=== PATIENT | female | born 1965 | race Caucasian/White ===

== ENCOUNTER 2020-06-24 15:00 | Inpatient (IN) | payer OTHER ==
[~2020-06-24] VITALS: Ht 160 cm; Wt 51.7 kg
[2020-06-24] MEDS ORDERED: NACL 0.9% 2,000 ML IV ONE (15:09)
[2020-06-24 15:15] VITALS: BP 103/41
--- NOTE | 2020-06-24 15:15 | NUR ---
pt biba from [facility] room for aloc. glucometer reads high gcs 11. pt opens eyes to voice. pupils perrl. pt appears withdrawn and fatigued. moves extremeties to light pain. mumbling, speech incomprehensible. 2 ivs established and bolus started. aroldo thomas. bp stable. airway intact. pmh-unknown
--- NOTE | 2020-06-24 15:24 | NUR ---
Pt to CT via edie
--- NOTE | 2020-06-24 15:25 | NUR ---
assisted pt to ct, pt on vehicle monitor technician during transport
--- NOTE | 2020-06-24 15:38 | NUR ---
Pt returned from CT via [facility]
[2020-06-24 15:44] LABS: MEAN CORPUSCULAR HEMOGLOBIN 31 pg (27-31); MEAN CORPUSCULAR HGB CONC 28 g/dL (33-37)
--- NOTE | 2020-06-24 15:54 | NUR ---
# 14 FR Urinary catheter inserted utilizing sterile technique. Immediate return of light yellow urine noted. Urine sample collected and sent to lab. Pt tolerated procedure well.
--- NOTE | 2020-06-24 15:55 | NUR ---
pt opens eyes spontaneously. pt moves arms to pain. pt not speaking in full complete sentences, moans instead.
[2020-06-24 16:08] LABS: ALBUMIN 3.1 g/dL (3.4-5.0); ANION GAP 28.8 (8-16); CARBON DIOXIDE 19.7 mmol/L (21-32); POTASSIUM 4.5 mmol/L (3.5-5.1); TOTAL BILIRUBIN 0.4 mg/dL (0.0-1.0)
[2020-06-24 16:10] LABS: HEMATOCRIT 52.1 % (36-48); HEMOGLOBIN 14.7 g/dL (12.0-16.0); MEAN CORPUSCULAR VOLUME 111.5 fL (80-94); PLATELET COUNT (AUTO) 315 K/uL (140-450); RED BLOOD CELL COUNT(AUTO) 4.68 MIL/uL (4.20-5.40); RED CELL DISTRIBUTION WIDTH 15.2 % (11.6-13.7); WHITE BLOOD COUNT (AUTO) 14.8 K/uL (4.8-10.8)
[2020-06-24 16:12] LABS: LYMPHOCYTES % (MANUAL) 6 % (20-46); METAMYELOCYTES % 1 % (0-0); PROTHROMBIN TIME 10.6 secs (10.8-13.4)
[2020-06-24 16:21] LABS: APPEARANCE,URINE CLEAR (CLEAR); BILIRUBIN,URINE NEGATIVE (NEGATIVE); BLOOD, URINE NEGATIVE (NEGATIVE); COLOR,URINE YELLOW (YELLOW); LEUKOCYTE ESTERASE ,URINE NEGATIVE (NEGATIVE); NITRITE, URINE NEGATIVE (NEGATIVE); PH,URINE 5.5 (5.0-9.0); UGLUCOSE 3+ (NEGATIVE)
--- NOTE | 2020-06-24 16:28 | NUR ---
Lactic acid 3.4, glucose 1580, BUN 63-- critical lab value received from lab. Dr Pruitt made aware
[2020-06-24] MEDS ORDERED: PIPERACILLIN/TAZOBACTAM 3.375 GM in DEXTROSE 5% 50 ML IV ONE (16:30)
[2020-06-24] MEDS ORDERED: PIPERACILLIN/TAZOBACTAM 3.375 GM VIAL IV ONE (16:48)
[2020-06-24] MEDS ORDERED: NACL 0.9% 1,000 ML IV ONE (16:50)
[2020-06-24] MEDS ORDERED: INSULIN REGULAR, HUMAN 100 UNIT/ML VIAL IVP ONE (16:50)
[2020-06-24] MEDS ORDERED: INSULIN REGULAR, HUMAN 100 UNIT in NACL 0.9% 100 ML IV ONE ×2 (16:50)
[2020-06-24 16:56] LABS: BARBITURATE, URINE NEGATIVE ng/ml (NEG <=200); BENZODIAZEPINE, URINE NEGATIVE ng/mL (NEG <=200); CANNABINOID, URINE NEGATIVE ng/mL (NEG <=50); COCAINE, URINE NEGATIVE ng/mL (NEG <=300); OPIATE, URINE NEGATIVE ng/mL (NEG <=2000); PHENCYCLIDINE SCREEN,URINE NEGATIVE ng/mL (NEG <=25)
--- NOTE | 2020-06-24 17:02 | NUR ---
accu check continues to be too high to read by glucometer
[2020-06-24] MEDS ORDERED: POTASSIUM CHL 20 MEQ/NACL 0.9% 1,000 ML IV ONE (17:05)
--- NOTE | 2020-06-24 17:23 | NUR ---
16 georgian john catheter placed, 100cc clear, yellow urine removed from pt
--- NOTE | 2020-06-24 17:26 | NUR ---
nadr, flacc 0
--- NOTE | 2020-06-24 17:27 | NUR ---
pt able to nod to yes or no questions. cant understand pt speaking, moaning. pupils open sponanteously. pt moves arms and legs spontaneously.
[2020-06-24] MEDS ORDERED: DEXTROSE 50% 50 ML SYR IVP PRN (17:50)
--- NOTE | 2020-06-24 18:03 | NUR ---
pt vomiting, dr borrero made aware
[2020-06-24] MEDS ORDERED: ONDANSETRON 4 MG/2 ML VIAL ONE (18:04)
[2020-06-24] MEDS ORDERED: ONDANSETRON 4 MG/2 ML VIAL IVP ONE (18:15)
[2020-06-24] MEDS: INSULIN REGULAR, HUMAN 100 UNIT in NACL 0.9% 100 ML IV SCH ×2 (18:25)
[2020-06-24] MEDS: BLOOD GLUCOSE MONITORING 1 DEV DEV FS SCH ×7 (18:26→23:50)
--- NOTE | 2020-06-24 18:50 | NUR ---
PT ARRIVED FROM ER IN [facility], REPORT RECEIVED FROM NIVIA RN, PT DROWSY, AROUSES TO VOICE, OX2, SELF AND LOCATION, SPEECH SLURRED/MUMBLING, SKIN WARM DRY COLOR WNL, PT PLACED ON ROLLING UP MACHINE OPERATOR, VITALS DOCUMENTED, PT WITH MONTGOMERY CATH, PIV TO R EJ 18G, R HAND 22G, LEFT AC 22G, PT ON INSULIN DRIP AT 5U/HR, NS WITH 20 KCL AT 250ML/HR, ALL SAFETY MEASURES IN PLACE, POC REVIEWED, MRSA SWAB DONE AND SENT TO LAB. WILL CONTINUE TO ADELINE
--- NOTE | 2020-06-24 18:52 | NUR ---
Patient will be admitted to care of Dr Barajas. Admited to ICU. Will go to room 6. Belongings list completed. Report to KAYLA Boyce.
[2020-06-24 18:55] LABS: ANION GAP 25.7 (8-16); CARBON DIOXIDE 17.3 mmol/L (21-32); CREATININE 2.7 mg/dL (0.6-1.3)
--- NOTE | 2020-06-24 19:20 | NUR ---
BEDSIDE REPORT GIVEN TO YANET GARZA.
[2020-06-24 19:23] LABS: FREE T4 (FREE THYROXINE) 1.02 ng/dL (0.76-1.46); THYROID STIMULATING HORMONE 0.28 uIU/mL (0.34-3.74)
--- NOTE | 2020-06-24 19:40 | NUR ---
REPORT RECEIVED FROM DAY SHIFT RN. PT IS DROWSY AND UNABLE TO PROVIDE ALL HISTORY WHEN ASKED. SPEECH IS MUMBLED. PT HAS ACCESSES ON THE LEFT AC 22G , 22G RIGHT HAND, 18G TO RIGHT EJ, ASYMPTOMATIC, PATENT AND INTACT. INSULIN DRIP INFUSING @ 5U/HR, 250 MLS NS WITH 20 MEQ KCL. RESPIRATION EVEN AND UNLABORED. SYMMETRICAL CHEST EXPANSION, SKIN WARM AND DRY. ORAL MUCOSA PINK AND MOIST. SAFETY MEASURES IN PLACE, SIDE RAILS UP AND BED IN LOWEST POSITION. WILL CONTINUE TO MONITOR.
[2020-06-24 19:48] LABS: ANION GAP 23.3 (8-16); CARBON DIOXIDE 20.6 mmol/L (21-32); CREATININE 2.8 mg/dL (0.6-1.3); POTASSIUM 3.9 mmol/L (3.5-5.1)
--- NOTE | 2020-06-24 19:57 | NUR ---
CALLED PT MOTHER NEDRA BERG @ [phone] BUT NUMBER IS NOT IN SERVICE.
[2020-06-24 19:59] LABS: MAGNESIUM 2.4 mg/dL (1.8-2.4)
[2020-06-24 20:00] VITALS: BP 93/56
[2020-06-24] MEDS ORDERED: NACL 0.9% 1,000 ML IV SCH (21:30)
--- NOTE | 2020-06-24 21:45 | NUR ---
SPOKE TO DR. HAIDER ABOUT PT'S BLOOD SUGAR >1000. MD ORDERED TO INCREASE INSULIN DRIP TO 7U/HR. MD ALSO ORDERED FOR NS @ 150MLS/HR X2 LITERS. WILL CONTINUE TO MONITOR.
[2020-06-24 22:00] VITALS: BP 123/56
--- NOTE | 2020-06-24 23:30 | NUR ---
LAB CALLED @ 8513 FOR A CRITICAL BS RESULT OF 959. PAGED DR. HAIDER ABOUT LATEST BLOOD SUGAR RESULT. SPOKE TO MD AND STATED TO MAINTAIN CURRENT INSULIN DRIP RATE OF 7U/HR. NS STILL INFUSING @ 150MLS/HR. WILL CONTINUE TO MONITOR.
[2020-06-25] VITALS (10 sets, daily range): BP systolic 100–155; BP diastolic 25–94
[2020-06-25 00:50] LABS: MAGNESIUM 2.5 mg/dL (1.8-2.4); PHOSPHORUS 3.4 mg/dL (2.5-4.9)
[2020-06-25] MEDS ORDERED: ONDANSETRON 4 MG/2 ML VIAL IVP PRN ×2 (00:50→16:15)
[2020-06-25] MEDS: BLOOD GLUCOSE MONITORING 1 DEV DEV FS SCH ×18 (00:50→20:35)
[2020-06-25 00:51] LABS: CARBON DIOXIDE 27.3 mmol/L (21-32); CREATININE 2.5 mg/dL (0.6-1.3); POTASSIUM 3.3 mmol/L (3.5-5.1)
--- NOTE | 2020-06-25 02:45 | NUR ---
CALLED DR. HAIDER ABOUT PT'S SODIUM LEVEL AT 158. MD ORDERED TO DC NS 0.9% AND CHANGE TO 0.45% NS @ 100 MLS/HR. WILL CONTINUE TO MONITOR PT.
--- NOTE | 2020-06-25 04:00 | NUR ---
MORNING ROUTINE PROVIDED. NO DISTRESS OBSERVED. DENIES PAIN. WILL CONTINUE TO MONITOR.
[2020-06-25 04:43] LABS: ANION GAP 15.2 (8-16); CARBON DIOXIDE 25.3 mmol/L (21-32); CREATININE 2.1 mg/dL (0.6-1.3); POTASSIUM 3.5 mmol/L (3.5-5.1)
[2020-06-25] MEDS: NACL 0.45% 1,000 ML IV SCH ×4 (05:00→22:38)
--- NOTE | 2020-06-25 07:15 | NUR ---
RECEIVED BEDSIDE REPORT FROM SUPERINTENDENT [place] NURSE YANET RN, PT ON ROOM AIR, NO SOB NOTED, AAOX2, IV TO L AC 22G PATENT INTACT SL, R EJ 18G PATENT INTACT, INFUSING INSULIN DRIP @ 4 UNIT/HR, INFUSING WELL AND RH 22 G IV PATENT INTACT, INFUSING 1/2 NS@ 100ML/HR, INFUSING WELL, MONTGOMERY CATH IN PLACE, DRAINING URINE TO GRAVITY. INITIAL ASSESSMENT DONE, ALL SAFETY PRECAUTION MET, CALL LIGHT WITHIN REACH, WILL CONTINUE TO MONITOR.
[2020-06-25 07:48] LABS: MAGNESIUM 2.5 mg/dL (1.8-2.4); PHOSPHORUS 2.8 mg/dL (2.5-4.9)
[2020-06-25] MEDS ORDERED: POTASSIUM CHL 20 MEQ/D5-1/2NS 1,000 ML IV SCH ×2 (08:10→12:40)
[2020-06-25 08:32] LABS: MAGNESIUM 2.6 mg/dL (1.8-2.4); PHOSPHORUS 2.8 mg/dL (2.5-4.9)
--- NOTE | 2020-06-25 08:55 | NUR ---
KEY OPERATOR NOTE: SW WAS UNABLE TO MEET PATIENT AT BEDSIDE DUE TO MEDICAL CONDITION. SW ATTEMPTED TO CALL NEDRA BERG PATIENT'S EMERGENCY CONTACT [phone] BUT PHONE LINE WAS DISCONNECTED. SW CONTACTED UTILIZATION REVIEWER GIOVANNI WHO STATED THAT PATIENT DID NOT WANT TO PROVIDE ADDITIONAL CONTACT INFORMATION FOR EMERGENCY CONTACT. SW WILL FOLLOW UP.
--- NOTE | 2020-06-25 08:59 | NUR ---
PATIENT HAS BEEN SCREENED AND CATEGORIZED HIGH NUTRITION RISK. PATIENT WILL BE SEEN WITHIN 1-2 DAYS OF ADMISSION. 06/25/20-06/26/[address]
[2020-06-25 09:08] LABS: ANION GAP 12.5 (8-16); CREATININE 1.7 mg/dL (0.6-1.3); POTASSIUM 3.5 mmol/L (3.5-5.1)
[2020-06-25] MEDS: INSULIN REGULAR, HUMAN 100 UNIT in NACL 0.9% 100 ML IV SCH ×2 (09:18)
--- NOTE | 2020-06-25 09:27 | NUR ---
DISCHARGE PLANNING: THIS IS A 54 Y/O FEMALE PATIENT FROM HOME, WHO WAS BIBA DUE TO HIGH BLOOD SUGAR. UNKNOWN PAST MEDICAL HISTORY. INITIAL DIAGNOSIS OF DKA. CURRENT LABS INCLUDE WBC 14.8, H/H 14.7/52.1, NA/K 136/3.5, BUN/CREA 44/1.7, GLU 274. ON INSULIN DRIP. ENDO CONSULT IN PLACE AND SEEN - TO CONTINUE INSULIN DRIP. DC PLAN BACK TO HOME ONCE STABLE. Addendum: 06/26/20 at 1404 by Gaby Panchal CM PT EVALUATION DONE TODAY - RECOMMENDED MORE REHAB SERVICES POST H[facility] STAY, CHARANJIT'S STRAIGHT CANE AND STANDARD WALKER. Addendum: 06/26/20 at 1600 by Gaby Panchal CM PT NOTES AND RECOMMENDATIONS FAXED TO [facility]. LISA OF [facility] MADE AWARE. IF PATIENT WILL NEED SNF, WE CAN SEND REFERRAL TO [facility]ODI MESSER AND GARCIA CASTILLO SINCE PATIENT WAS THERE BEFORE. I ALSO INFORMED HER THAT PT RECOMMENDED STRAIGHT CANE AND STANDARD WALKER. SHE STATED TO CONTACT [facility] FOR DME. PT RECOMMENDATIONS SENT TO [facility] AT [phone]. CONTACTED MELL JC OF [facility] AT [phone], NO ANSWER. LEFT MESSAGE. DME REQUEST SENT TO [facility] [phone]. WILL FOLLOW UP. Addendum: 06/26/20 at 1622 by Gaby Panchal CM MET WITH THE PATIENT AT THE BEDSIDE TO DISCUSS DC PLANNING AND IN AGREEMENT TO GO TO A SNF FOR PT. SHE ALSO MENTIONED THAT SHE ALREADY HAS A WALKER AND A CANE. SHE STATED ANY OF THOSE 2 SNF SHE IS OK WITH IT. Addendum: 06/26/20 at 1623 by Gaby Panchal CM LISA DEL [facility] PROVIDED ME WITH TRANSPORT AUTH [id number]., [facility]. Addendum: 06/26/20 at 1628 by Keeley Alcocer CM FISH CHRIS: FAXED PATIENTS CLINICALS TO [facility]RES CM WILL FOLLOW UP TOMORROW Addendum: 06/26/20 at 1634 by Gaby Panchal CM ADDITIONAL NOTES FOR PREVIOUS DOCUMENTATION: DR. JIMENES MADE AWARE AND OK TO PUT THE ORDERS IN. ORDERS TRANSCRIBED AND CARRIED OUT. Addendum: 06/27/20 at 0859 by Gaby Panchal CM RECEIVED AN ORDER FOR MRI OF THE LUMBAR SPINE W/WO CONTRAST. ORDER SENT TO [facility]. Addendum: 06/27/20 at 1037 by Gaby Panchal CM CONTACTED [facility] TO FOLLOW WITH THE LACQUER SPRAYER AVAILABILITY, ABLE TO SPEAK TO LAMONTE. SHE STATED THAT JENNIFER IS ON THE PHONE RIGHT NOW WITH LACQUER SPRAYER JAK. PER LAMONTE LACQUER SPRAYER IS NOT AVAILABLE UNTIL MONDAY. LISA OF [facility] MADE AWARE AND TOLD ME TO SEND IT TO [facility] AND [facility]. REFERRAL SENT TO BOTH FACILITIES. WILL FOLLOW UP. Addendum: 06/27/20 at 1054 by Gaby Panchal CM RECEIVED A CALL BACK FROM [facility]SF[facility] AT [facility], STATING THAT SHE WILL CHECK WITH THEIR MRI IF THEY ARE ABLE TO TAKE THE PATIENT TODAY AND WILL CALL ME BACK. Addendum: 06/27/20 at 1213 by Gaby Panchal CM RECEIVED A CALL BACK FROM ELSA OF [facility] TRANSFER CENTER, STATING THE THEIR MRI IS ONLY DOING TRAUMA, MS AND STROKE PATIENT'S AT THIS TIME AND I CAN FOLLOW UP WITH HER ON . CONTACTED [facility], ABLE TO SPEAK TO POLINA VEGA, HE STATED TO CONTACT RADIOLOGY DIRECTLY BECAUSE THEY DO NOT TAKE CARE OF OUT PATIENT SCHEDULING. CONTACTED [facility] AT [phone] AND REQUESTED TO BE CONNECTED TO RADIOLOGY DEPARTMENT, ABLE TO SPEAK TO AMANDO. PER AMANDO THEY DO NOT DO OUT PATIENT MRI ON THE WEEKEND AND NO PRESS PIPE INSPECTOR AVAILABLE WELL. SHE TOLD ME TO CALL AGAIN DURING BUSINESS HOURS. LISA OF [facility] MADE AWARE. SHE STATED TO REACH OUT TO [facility] AND [facility]. CONTACTED [facility] TRANSFER ABERDEEN, ABLE TO SPEAK TO GIOVANNI. PER GIOVANNI THEY ONLY TAKE CARE OF IN PATIENT TRANSFER AND REFERRED ME TO CALL COST ACCOUNTING MANAGER. CONTACTED [facility] [phone], AND REQUESTED TO BE TRANSFERRED TO . PER HOUSE SUP NO OUT PATIENT MRI DURING WEEKENDS. RECEIVED A CALL FROM [facility], PER FABIOLA SHE DOES NOT THINK THAT THEY ARE ABLE TO DO OUT PATIENT MRI, HOWEVER SHE WILL CONFIRM IT WITH THEIR MRI AND WILL CALL ME BACK. LISA [facility] MADE AWARE. Addendum: 06/27/20 at 1347 by Gaby Panchal CM RECEIVED A CALL BACK FROM [facility], STATING THAT THEY DO NOT DO OUT PATIENT MRI. LISA [facility] MADE AWARE. DR. JIMENES MADE AWARE. SHE STATED PATIENT IS NOT READY FOR DISCHARGE, WILL STAY UNTIL MONDAY. LISA [facility] MADE AWARE. SHE STATED OK TO SEND REFERRAL TO [facility]. REFERRAL AND ORDER SENT TO [facility] AT [phone]. CONTACTED [facility] RAD[facility] AT [phone], ABLE TO SPEAK TO LAMONTE. INFORMED HER THAT PER INSURANCE OK TO DO MRI ON MONDAY. PER LAMONTE, SHE REACH OUT TO THEIR LACQUER SPRAYER JAK TO SEE WHAT TIME HE WILL BE THERE ON MONDAY AND WILL CALL ME BACK. WILL FOLLOW UP. Addendum: 06/27/20 at 1439 by Gaby Panchal CM CONTACTED [facility] TO FOLLOW UP, ABLE TO SPEAK TO LAMONTE. PER LAMONTE, THEIR TECH WILL BE THERE BETWEEN [phone]. INFORMED HER THAT I WILL SET UP TRANSPORT FOR 0730 AM ON MONDAY. PER LISA OF [facility], SHE PROVIDED THE AUTH [id number] TO [facility]. Addendum: 06/27/20 at 1450 by Gaby Panchal TRANSPORT IS SET UP FOR MONDAY AT 0730 WITH [facility]. PRIMARY KAYLA CARDOSO, CHARGE NURSELISA OF [facility] AND DR. JIMENES MADE AWARE. Addendum: 06/27/20 at 1452 by Gaby Panchal CM PERSON'S NAME WHOM I SPOKE TO AT [facility] IS RICHARD [phone]. TRANSPORT IS SCHEDULED FOR WAIT AND RETURN Addendum: 06/30/20 at 1352 by Gaby Panchal RECEIVED A CALL BACK BACK FROM MELL JC OF [facility] REGARDING DME ORDER. INFORMED HER TO DISREGARD THE ORDER DUE TO PATIENT HAS IT ALREADY. Addendum: 07/01/20 at 1223 by Keeley Alcocer CM FISH CHRIS: FOLLOWED UP WITH [facility] SPOKE WITH WILLIAM. I FAXED UPDATED CLINICALS THEY WILL REVIEW AND CONTACT ME BACK.
[2020-06-25] MEDS ORDERED: DEXT 5% / NACL 0.45% 1,000 ML IV SCH (12:05)
[2020-06-25] MEDS ORDERED: VANCOMYCIN PER PHARMACY MC PRN (12:05)
[2020-06-25 12:51] LABS: ANION GAP 13.1 (8-16); CREATININE 1.6 mg/dL (0.6-1.3); POTASSIUM 4.1 mmol/L (3.5-5.1)
[2020-06-25 13:06] LABS: MAGNESIUM 2.4 mg/dL (1.8-2.4); PHOSPHORUS 3.1 mg/dL (2.5-4.9)
--- NOTE | 2020-06-25 13:13 | NUR ---
TALKED TO PT REGARDING IS IT OK TO GIVE INFORMATION TO PT'S SISTER WHO CALLED SHAVON, PER PT, OK TO RELEASE INFORMATION, SPOKE TO SHAVON WHO PROVIDE US WITH PHONE NUMBER OF PT MOTHER NEDRA BERG [phone]. UPDATED SISTER WITH PT STATUS. SISTER STATED UNDERSTANDING.
[2020-06-25] MEDS ORDERED: VANCOMYCIN 500 MG in DEXTROSE 5% 100 ML IV SCH (14:00)
--- NOTE | 2020-06-25 14:20 | NUR ---
06/25/20 RD INITIAL ASSESSMENT COMPLETED PLEASE REFER TO NUTRITION ASSESSMENT UNDER CARE ACTIVITY FOR ESTIMATED NUTRITIONAL NEEDS. 1. CONTINUE CLEAR LIQUID DIET TOLERATED 2. ADVANCE TO [facility] 60 MECHANICAL SOFT WHEN MEDICALLY APPROPRIATE 3. RD TO FOLLOW-UP 3-5 DAYS, MODERATE RISK KEITH ELLIS, SHELLY
[2020-06-25] MEDS ORDERED: MAGNESIUM OXIDE 400 MG TAB PO PRN (16:15)
[2020-06-25] MEDS ORDERED: MORPHINE SULFATE 2 MG/ML SYR IVP PRN (16:15)
[2020-06-25] MEDS ORDERED: diphenhydrAMINE 50 MG/ML VIAL IVP PRN (16:15)
[2020-06-25] MEDS ORDERED: ZOLPIDEM 5 MG TAB PO PRN (16:15)
[2020-06-25] MEDS ORDERED: HYDROcodone/APAP 5/325 MG 1 TAB TAB PO PRN (16:15)
[2020-06-25] MEDS ORDERED: POTASSIUM CHLORIDE 10 MEQ TABER PO PRN (16:15)
[2020-06-25] MEDS ORDERED: ACETAMINOPHEN 650 MG SUPP RC PRN (16:15)
--- NOTE | 2020-06-25 16:15 | NUR ---
DR. MARTINS CAME AND ASSESSED PT, AT BEDSIDE. PER DR SUNG TO DC INSULIN DRIP, GIVE PT LANTUS 10 UNITS RIGHT NOW, AND TO CHANGE IVF TO 1/2 NS @ 150ML/HR, WILL CONTINUE WITH ORDERS.
--- NOTE | 2020-06-25 16:30 | NUR ---
L AC 22G IV TAKEN OUT, CATH INTACT. PT TOLERATED WELL, WILL CONTINUE TO MONITOR.
--- NOTE | 2020-06-25 16:34 | NUR ---
PT C/O PAIN TO THE ABD, DR. MARTINS ORDERED MORPHINE 2MG, MEDICATION GIVEN PER DR ORDER. WILL CONTINUE TO MONITOR.
[2020-06-25] MEDS ORDERED: INSULIN LANTUS 100 UNITS/ML 10 ML VIAL SUBQ SCH (16:40)
[2020-06-25 17:10] LABS: BASOPHILS % (AUTO) 0.2 % (0.0-2.0); EOSINOPHILS # (AUTO) 0.1 K/uL (0-0.4); EOSINOPHILS % (AUTO) 1.3 % (0.0-4.0); HEMATOCRIT 42.4 % (36-48); HEMOGLOBIN 13.8 g/dL (12.0-16.0); LYMPHOCYTES # (AUTO) 2.2 K/uL (2.5-16.5); LYMPHOCYTES % (AUTO) 20.1 % (20.5-51.1); MEAN CORPUSCULAR HEMOGLOBIN 32 pg (27-31); MEAN CORPUSCULAR HGB CONC 33 g/dL (33-37); MEAN CORPUSCULAR VOLUME 97.5 fL (80-94); MONOCYTES # (AUTO) 0.5 K/uL (0.8-1.0); MONOCYTES % (AUTO) 4.3 % (1.7-9.3); NEUTROPHILS # (AUTO) 8.1 K/uL (1.8-7.7); NEUTROPHILS % (AUTO) 74.1 % (42.2-75.2); PLATELET COUNT (AUTO) 212 K/uL (140-450); RED BLOOD CELL COUNT(AUTO) 4.34 MIL/uL (4.20-5.40); RED CELL DISTRIBUTION WIDTH 13.3 % (11.6-13.7)
[2020-06-25] MEDS: PIPERACILLIN/TAZOBACTAM 2.25 GM in DEXTROSE 5% 50 ML IV SCH ×2 (18:10→23:43)
--- NOTE | 2020-06-25 18:11 | NUR ---
PT FELT NAUSEATED WHILE EATING DINNER, ZOFRAN ORDERED ADMINISTERED, PT TOLERATED WELL, NO DISTRESS NOTED, WILL CONTINUE TO MONITOR.
--- NOTE | 2020-06-25 19:10 | NUR ---
TRANSFERRED PT TO TELE, ROOM 105 B, PT TOLERATED WELL, NO DISTRESS NOTED. REPORT GIVEN AT BEDSIDE TO ANABEL GARZA.
--- NOTE | 2020-06-25 19:10 | NUR ---
RECEIVED BEDSIDE ENDORSEMENT FROM THERMOMETER MAKER. TRANSFERRED PATIENT SAFELY FROM WHEELCHAIR TO BED. NO SOB. DENIES PAIN, IV SITE INTACT RH 22G AND Silvio Kearns 18 G. FALL PROTOCOL OBSERVED. SAFETY MEASURES IN PLACE. PLAN OF CARE DISCUSSED. CALL LIGHT WITHIN REACH.
--- NOTE | 2020-06-25 19:55 | NUR ---
SPOKE TO SECURITY ENGINEER DR. POOLE TO RELAY BLOOD CULTURE RESULT OF GRAM + COCCI IN CLUSTERS. PATIENT IS ON ZOSYN IV AND VANCO IV. NO NEW ORDER PER .
[2020-06-25] MEDS: INSULIN LANTUS 100 UNITS/ML 10 ML VIAL SUBQ SCH (20:37)
[2020-06-25] MEDS: INSULIN LISPRO SLIDING SCALE 100 UNITS/ML VIAL SUBQ PRN (20:38)
--- NOTE | 2020-06-25 20:38 | NUR ---
BS 361. HUMALOG 10 UNITS SQ AND LANTUS 10 U SQ GIVEN ORDERED. NO DISTRESS NOTED.
--- NOTE | 2020-06-25 23:44 | NUR ---
ZOSYN IV GIVEN ORDERED, NO A/R NOTED. PATIENT IS RESTING.
[2020-06-26] VITALS: BP 118/51
[2020-06-26] MEDS: NACL 0.45% 1,000 ML IV SCH ×3 (03:21→18:32)
--- NOTE | 2020-06-26 03:21 | NUR ---
IVF FINISHED, CHANGED TO A NEW BAG OF 1/2 NS 1L AT 150CC/HR.
[2020-06-26 04:00] VITALS: BP 139/61
[2020-06-26 05:38] LABS: BASOPHILS % (AUTO) 0.2 % (0.0-2.0); EOSINOPHILS # (AUTO) 0.2 K/uL (0-0.4); EOSINOPHILS % (AUTO) 1.8 % (0.0-4.0); LYMPHOCYTES # (AUTO) 2.3 K/uL (2.5-16.5); LYMPHOCYTES % (AUTO) 20.8 % (20.5-51.1); MEAN CORPUSCULAR HEMOGLOBIN 32 pg (27-31); MEAN CORPUSCULAR HGB CONC 32 g/dL (33-37); MEAN CORPUSCULAR VOLUME 97.1 fL (80-94); MONOCYTES # (AUTO) 0.4 K/uL (0.8-1.0); MONOCYTES % (AUTO) 3.8 % (1.7-9.3); NEUTROPHILS # (AUTO) 8.2 K/uL (1.8-7.7); NEUTROPHILS % (AUTO) 73.4 % (42.2-75.2); PLATELET COUNT (AUTO) 186 K/uL (140-450); RED BLOOD CELL COUNT(AUTO) 4.12 MIL/uL (4.20-5.40); RED CELL DISTRIBUTION WIDTH 13.3 % (11.6-13.7); WHITE BLOOD COUNT (AUTO) 11.2 K/uL (4.8-10.8)
[2020-06-26] MEDS: PIPERACILLIN/TAZOBACTAM 2.25 GM in DEXTROSE 5% 50 ML IV SCH ×3 (05:43→18:22)
--- NOTE | 2020-06-26 05:43 | NUR ---
ZOSYN IV GIVEN ORDERED, TOLERATED WELL NO A/R NOTED.
[2020-06-26 06:01] LABS: ALBUMIN 2.2 g/dL (3.4-5.0); ANION GAP 12.3 (8-16); CARBON DIOXIDE 26.8 mmol/L (21-32); CREATININE 1.1 mg/dL (0.6-1.3); POTASSIUM 4.1 mmol/L (3.5-5.1); TOTAL BILIRUBIN 0.2 mg/dL (0.0-1.0)
[2020-06-26] MEDS: BLOOD GLUCOSE MONITORING 1 DEV DEV FS SCH ×4 (06:54→21:01)
[2020-06-26] MEDS: INSULIN LISPRO SLIDING SCALE 100 UNITS/ML VIAL SUBQ PRN ×3 (06:55→21:04)
--- NOTE | 2020-06-26 06:56 | NUR ---
BLOOD SUGAR 293. HUMALOG 6 UNITS SQ GIVEN.
--- NOTE | 2020-06-26 07:34 | NUR ---
PATIENT IS IN STABLE CONDITION. BEDSIDE ENDORSEMENT GIVEN TO AM SHIFT RN FOR CONTINUITY OF CARE.
--- NOTE | 2020-06-26 07:35 | NUR ---
Received report from pm nurse Viviana. Pt asleep in bed, opens eyes when name is called. No signs of distress, respirations even & nonlabored. Right hand IV 22G intact with ongoing 1/2 NS @ 150ml/h. Right EJ IV saline locked. Bed alarm on.
--- NOTE | 2020-06-26 08:30 | NUR ---
Right hand IV occluded, unable to flush. No signs of infiltration. Right hand IV removed, resumed IVF of 1/2N @ 150ml/hr to right EJ IV 18G. No signs of complications. Pt aaox2, sitting in high fowlers in bed, eating clear liquid breakfast.
[2020-06-26] MEDS: VANCOMYCIN 500 MG in DEXTROSE 5% 100 ML IV SCH (08:41)
[2020-06-26] MEDS: INSULIN LANTUS 100 UNITS/ML 10 ML VIAL SUBQ SCH ×2 (08:52→21:06)
[2020-06-26 09:09] LABS: T3 UPTAKE 27 % (24-39); T4 (THYROXINE) 6.2 ug/dL (4.5-12.0)
--- NOTE | 2020-06-26 09:30 | NUR ---
Pt's BP 174/75. Pt is asymptomatic at this time, aaox2, denies any headache/nausea/dizziness. Instructed on relaxation techniques, pt able to follow simple commands for breathing ex and minimizing stimuli. Dr Lewis paged and awaiting call back.
[2020-06-26] MEDS: MUPIROCIN CA NASAL 2% 1GM TUBE NS SCH (09:40)
[2020-06-26] MEDS ORDERED: hydrALAZINE 20 MG/ML VIAL IVP PRN (10:25)
[2020-06-26 10:30] VITALS: BP 142/60
--- NOTE | 2020-06-26 10:30 | NUR ---
Dr Lewis notified of elevated BP. New orders received, noted and carried out. Pt remains asymptomatic at this time.
[2020-06-26] MEDS: CHLORHEXADINE GLUC 2% CLOTH TP SCH (10:57)
[2020-06-26 12:00] VITALS: BP 118/56
--- NOTE | 2020-06-26 12:15 | NUR ---
Pt sitting in high-fowlers in bed, eating lunch. Denies and discomfort at this time except for feeling exhausted. No dysphagia observed. Right EJ IV 18G intact with ongoing 1/2 NS @ 150ml/hr.
[2020-06-26 16:00] VITALS: BP 158/82
--- NOTE | 2020-06-26 16:49 | NUR ---
Received order from Dr Lewis to asuncion ABG shraddha. Order noted and carried out. Reed RICHARDSON notified.
--- NOTE | 2020-06-26 18:12 | NUR ---
CALL PLACE TO JACQUIE OMER TALKED TO CLEANER FURNITURE MCKENZIE TO ARRANGED MRI OF LUMBAR SPINE W/ WO CONTRAST, PER MCKENZIE SHE WILL TALKED TO MANJINDER HOANGSPLITTING MACHINE OPERATOR. PER MANJINDER SHE WILL CALL DR. NOLEN FOR APPROVAL AND THEN SHE WILL FIND OUT WHEN IS THE CNS COMING AND THEN SHE WILL CALL ME FOR US TO [facility]RANGE FOR THE TRANSPORT
--- NOTE | 2020-06-26 19:35 | NUR ---
RECEIVED PT FROM DAY RN. PT ASLEEP IN BED, AOX2, EASILY AROUSABLE TO NAME AND OPENS EYES. RESPIRATIONS EVEN AND UNLABORED. NO DISTRESS NOTED. IV SITE ON RIGHT EJ 18G, INTACT, RUNNING 1/2 NS AT 150ML/HR. BED ALARM ON, SAFETY PRECAUTIONS IN PLACE. CALL LIGHT WITHIN REACH. WILL CONTINUE TO MONITOR
[2020-06-26 20:00] VITALS: BP 123/57
--- NOTE | 2020-06-26 21:05 | NUR ---
BLOOD SUGAR 260. ADMINISTERED 6 UNITS INSULIN AND SCHEDULED MEDICATION PER MD. PT TOLERATED WELL. WILL CONTINUE TO MONITOR
--- NOTE | 2020-06-26 22:00 | NUR ---
PT AWAKE SITTING UP IN BED WATCHING TELEVISION. DENIES PAIN AND DISCOMFORT. WILL CONTINUE TO MONITOR
[2020-06-27] VITALS: BP 142/69
[2020-06-27] MEDS: PIPERACILLIN/TAZOBACTAM 2.25 GM in DEXTROSE 5% 50 ML IV SCH ×4 (00:27→17:45)
--- NOTE | 2020-06-27 00:30 | NUR ---
PT ASLEEP IN BED. RESPIRATIONS EVEN AND UNLABORED. NO DISTRESS NOTED. WILL CONTINUE TO MONITOR
--- NOTE | 2020-06-27 01:00 | NUR ---
PT REFUSED BLOOD DRAW. EDUCATED PATIENT ON RISK AND BENEFITS AND IMPORTANCE OF THERAPEUTIC LEVELS OF MEDICATION. WILL HOLD SCHEDULED VANCO DUE TO PT STILL REFUSING BLOOD DRAW.
--- NOTE | 2020-06-27 02:10 | NUR ---
LAB ATTEMPTED TO DRAW BLOOD SECOND TIME. PT REFUSED. EDUCATION GIVEN. PT STILL REFUSED AND REQUEST TO SLEEP. LAB WILL TRY TO COME AGAIN. WILL CONTINUE TO MONITOR PT.
[2020-06-27] MEDS: NACL 0.45% 1,000 ML IV SCH ×3 (02:27→16:31)
[2020-06-27] MEDS: VANCOMYCIN 500 MG in DEXTROSE 5% 100 ML IV SCH ×3 (02:27→18:41)
--- NOTE | 2020-06-27 03:50 | NUR ---
PT ASLEEP IN BED. EASILY AROUSABLE TO NAME AND OPENS EYES. PT STATED, "I'M JUST FEELING TIRED". DENIES SOB. DENIES PAIN. NO DISTRESS NOTED. SAFETY MEASURES IN PLACE. CALL LIGHT WITHIN REACH. WILL CONTINUE TO MONITOR.
[2020-06-27 04:00] VITALS: BP 127/64
[2020-06-27] MEDS: BLOOD GLUCOSE MONITORING 1 DEV DEV FS SCH ×4 (06:31→20:13)
--- NOTE | 2020-06-27 06:32 | NUR ---
PT BLOOD SUGAR 122. NO INSULIN COVERAGE NEEDED PER MD ORDERS. WILL CONTINUE TO MONITOR
[2020-06-27 06:54] LABS: BASOPHILS # (AUTO) 0.1 K/uL (0.00-0.22); BASOPHILS % (AUTO) 0.9 % (0.0-2.0); EOSINOPHILS # (AUTO) 0.2 K/uL (0-0.4); EOSINOPHILS % (AUTO) 1.5 % (0.0-4.0); HEMATOCRIT 36.4 % (36-48); HEMOGLOBIN 11.9 g/dL (12.0-16.0); LYMPHOCYTES # (AUTO) 3.7 K/uL (2.5-16.5); LYMPHOCYTES % (AUTO) 34.9 % (20.5-51.1); MEAN CORPUSCULAR HEMOGLOBIN 31 pg (27-31); MEAN CORPUSCULAR HGB CONC 33 g/dL (33-37); MEAN CORPUSCULAR VOLUME 95.9 fL (80-94); MONOCYTES # (AUTO) 0.2 K/uL (0.8-1.0); MONOCYTES % (AUTO) 2.3 % (1.7-9.3); NEUTROPHILS # (AUTO) 6.5 K/uL (1.8-7.7); NEUTROPHILS % (AUTO) 60.4 % (42.2-75.2); PLATELET COUNT (AUTO) 166 K/uL (140-450); RED CELL DISTRIBUTION WIDTH 13.2 % (11.6-13.7); WHITE BLOOD COUNT (AUTO) 10.7 K/uL (4.8-10.8)
[2020-06-27 07:09] LABS: ALBUMIN 2.1 g/dL (3.4-5.0); ANION GAP 11.9 (8-16); CARBON DIOXIDE 24.4 mmol/L (21-32); CREATININE 0.8 mg/dL (0.6-1.3); POTASSIUM 3.3 mmol/L (3.5-5.1); TOTAL BILIRUBIN 0.4 mg/dL (0.0-1.0)
--- NOTE | 2020-06-27 07:15 | NUR ---
ENDORSED PT TO DAY RN FOR CONTINUITY OF CARE. PT IN STABLE CONDITION
--- NOTE | 2020-06-27 07:30 | NUR ---
RECEIVED REPORT FROM [facility] NURSE, ASSUMED CARE. PT RESTING COMFORTABLY WITH NO S/S OF PAIN AND/OR DISTRESS AT THIS TIME. PERSONAL BELONGINGS, BEDSIDE TABLE, CALL LIGHT WITHIN REACH. WILL CONTINUE TO MONITOR.
[2020-06-27 08:00] VITALS: BP_SYST 104; BP_SYST 112; BP_DIAS 48; BP_DIAS 60
[2020-06-27] MEDS: KCL 20 MEQ/WATER INJ PREMIX 100 ML IV SCH ×2 (08:59→10:51)
[2020-06-27] MEDS: lisinopriL 10 MG TAB PO SCH (09:02)
[2020-06-27] MEDS: amLODIPine 5 MG TAB PO SCH (09:02)
[2020-06-27] MEDS: MUPIROCIN CA NASAL 2% 1GM TUBE NS SCH (09:03)
[2020-06-27] MEDS: INSULIN LANTUS 100 UNITS/ML 10 ML VIAL SUBQ SCH ×2 (09:54→20:15)
[2020-06-27 12:00] VITALS: BP 120/53
[2020-06-27] MEDS: ACETAMINOPHEN 325 MG TAB PO PRN ×2 (12:41→23:32)
[2020-06-27] MEDS: CHLORHEXADINE GLUC 2% CLOTH TP SCH (12:42)
--- NOTE | 2020-06-27 12:47 | NUR ---
PT HAS C/O GARDNER AND BLURRED VISION, VITALS WNL, BG 135 @ 1130, PT ANSWERING QUESTIONS APPROPRIATELY AND FOLLOWING ORDERS. TYLENOL GIVEN PER PT REQUEST FOR GARDNER 03/01. CRN AWARE. WILL CONTINUE TO MONITOR.
--- NOTE | 2020-06-27 13:00 | NUR ---
PT RESTING IN BED WITH NO S/S OF PAIN AND/OR DISTRESS AT THIS TIME. WILL CONTINUE TO MONITOR.
--- NOTE | 2020-06-27 14:00 | NUR ---
PT STATES THE BLURRY VISION AND GARDNER WENT AWAY. PT RESTING COMFORTABLY IN BED WITH NO S/S OF PAIN AND/OR DISTRESS AT THIS TIME. WILL CONTINUE TO MONITOR.
[2020-06-27 16:00] VITALS: BP 107/48
[2020-06-27] MEDS: INSULIN LISPRO SLIDING SCALE 100 UNITS/ML VIAL SUBQ PRN ×2 (16:34→20:15)
--- NOTE | 2020-06-27 18:47 | NUR ---
CARE PLAN REVIEWED, INTERVENTIONS IMPLEMENTED: PAIN MGMT, REPOSITIONING THROUGHOUT SHIFT, LABS AND I/O MONITORED, BLOOD SUGAR MGMT. VSS, AFEBRILE, O2 SAT >92% ON RA. C/O PAIN X1 WITH RELIEF FROM PRN PAIN MEDS. PT STATES FEELING BETTER AFTER EARLIER BOUT OF BLURRED VISION/GARDNER. PT CONTINUES ON IV ABX WITH NO ADVERSE REACTIONS NOTED AND/OR REPORTED. ALL NEEDS MET THIS SHIFT. PERSONAL BELONGINGS, BEDSIDE TABLE, CALL LIGHT WITHIN REACH. WILL CONTINUE TO MONITOR.
--- NOTE | 2020-06-27 19:05 | NUR ---
RECEIVED PATIENT IN STABLE CONDITION FROM AM SHIFT NURSE FOR CONTINUITY OF CARE. TELE PATIENT. AAOX2-3. RESPIRATIONS EVEN, UNLABORED. SKIN WARM, DRY. RIGHT EJ NOTED, INFUSING FLUIDS WELL. ABDOMEN SOFT, NONTENDER. MONTGOMERY CATHETER PATENT WITH YELLOW URINE DRAINING TO GRAVITY. PLAN OF CARE DISCUSSED WITH PATIENT. SAFETY PRECAUTIONS IN PLACE. ISOLATION PRECAUTIONS OBSERVED BY ALL STAFF.
--- NOTE | 2020-06-27 20:00 | NUR ---
VSS. NO DISTRESS REPORTED/OBSERVED. IV INTACT/PATENT. REPOSITIONED FOR COMFORT. MONTGOMERY DRAINING CLEAR YELLOW URINE. DENIES H/A. BLOOD SUGAR 234. PROVIDED INSULIN COVERAGE. SAFETY MAINTAINED. SIDE RAILS UP X 2. CB IN REACH. AFIB ON TELE CONTROLLED. WILL CONT TO MONITOR PT STATUS.
[2020-06-27 21:18] VITALS: BP 119/66
[2020-06-28] VITALS: BP 103/44
[2020-06-28] MEDS: PIPERACILLIN/TAZOBACTAM 2.25 GM in DEXTROSE 5% 50 ML IV SCH ×3 (00:33→11:28)
[2020-06-28] MEDS: NACL 0.45% 1,000 ML IV SCH ×3 (01:03→12:15)
[2020-06-28 04:24] VITALS: BP 120/67
[2020-06-28] MEDS: VANCOMYCIN 500 MG in DEXTROSE 5% 100 ML IV SCH ×2 (05:48→17:30)
[2020-06-28] MEDS: BLOOD GLUCOSE MONITORING 1 DEV DEV FS SCH ×4 (06:28→21:57)
[2020-06-28] MEDS: INSULIN LISPRO SLIDING SCALE 100 UNITS/ML VIAL SUBQ PRN ×3 (06:29→21:45)
--- NOTE | 2020-06-28 06:53 | NUR ---
GLUCOSE 178. MED W/ 2 UNITS HUMALOG ORDERED. IV INTACT/PATENT/INFUSING ANTBX ORDERED. NO N/V OBSERVED/REPORTED. SR ON TELE. REPORT TO BE GIVEN TO ONCOMING DAY NURSE AT 0700.
[2020-06-28 07:19] LABS: BASOPHILS % (AUTO) 0.3 % (0.0-2.0); EOSINOPHILS # (AUTO) 0.1 K/uL (0-0.4); EOSINOPHILS % (AUTO) 1.9 % (0.0-4.0); HEMATOCRIT 36.7 % (36-48); HEMOGLOBIN 11.8 g/dL (12.0-16.0); LYMPHOCYTES # (AUTO) 2.4 K/uL (2.5-16.5); LYMPHOCYTES % (AUTO) 30.5 % (20.5-51.1); MEAN CORPUSCULAR HEMOGLOBIN 31 pg (27-31); MEAN CORPUSCULAR HGB CONC 32 g/dL (33-37); MEAN CORPUSCULAR VOLUME 96.3 fL (80-94); MONOCYTES # (AUTO) 0.3 K/uL (0.8-1.0); MONOCYTES % (AUTO) 3.2 % (1.7-9.3); NEUTROPHILS % (AUTO) 64.1 % (42.2-75.2); PLATELET COUNT (AUTO) 150 K/uL (140-450); RED BLOOD CELL COUNT(AUTO) 3.81 MIL/uL (4.20-5.40); RED CELL DISTRIBUTION WIDTH 12.8 % (11.6-13.7); WHITE BLOOD COUNT (AUTO) 7.9 K/uL (4.8-10.8)
[2020-06-28 07:21] LABS: ANION GAP 8.3 (8-16); CARBON DIOXIDE 27.9 mmol/L (21-32); CREATININE 0.9 mg/dL (0.6-1.3); POTASSIUM 4.2 mmol/L (3.5-5.1)
--- NOTE | 2020-06-28 07:30 | NUR ---
RECEIVED REPORT FROM [facility] NURSE, ASSUMED CARE. PT RESTING COMFORTABLY WITH NO S/S OF PAIN AND/OR DISTRESS AT THIS TIME. PERSONAL BELONGINGS, BEDSIDE TABLE, CALL LIGHT WITHIN REACH. WILL CONTINUE TO MONITOR.
[2020-06-28 08:00] VITALS: BP 129/53
[2020-06-28] MEDS: INSULIN LANTUS 100 UNITS/ML 10 ML VIAL SUBQ SCH ×2 (09:23→21:48)
[2020-06-28] MEDS: MUPIROCIN CA NASAL 2% 1GM TUBE NS SCH (09:26)
[2020-06-28] MEDS: amLODIPine 5 MG TAB PO SCH (09:29)
[2020-06-28] MEDS: lisinopriL 10 MG TAB PO SCH (09:29)
[2020-06-28] MEDS: ACETAMINOPHEN 325 MG TAB PO PRN ×2 (09:38→18:43)
--- NOTE | 2020-06-28 09:52 | NUR ---
(06/28/20) RD FOLLOW UP COMPLETED PLEASE REFER TO NUTRITION PROGRESS NOTE UNDER CARE ACTIVITY FOR ESTIMATED NUTRITION NEEDS. RD RECOMMENDATIONS: 1. CONTINUE MECHANICAL SOFT DIET TOLERATED 2. ADD CCHO 60GM DIET RESTRICTION TO CURRENT DIET ORDER. 3. RD TO FOLLOW-UP 3-5 DAYS, MODERATE RISK RAQUEL HUBBARD MS, RDN
[2020-06-28 11:57] VITALS: BP 120/50
[2020-06-28] MEDS: CHLORHEXADINE GLUC 2% CLOTH TP SCH (12:13)
[2020-06-28 16:00] VITALS: BP 132/76
--- NOTE | 2020-06-28 18:25 | NUR ---
CARE PLAN REVIEWED, INTERVENTIONS IMPLEMENTED: PT REPOSITIONED FREQUENTLY, LABS AND I/O MONITORED, VITAL SIGNS MONITORED, PAIN MGMT, ABX THERAPY. VSS, AFEBRILE, O2 SAT >92% ON RA. C/O PAIN X1 WITH RELIEF FROM PRN MED. PT CONTINUES ON IV FLUIDS AND ABX WITH NO ADVERSE REACTIONS NOTED AND/OR REPORTED. ALL NEEDS MET THIS SHIFT. PERSONAL BELONGINGS, BEDSIDE TABLE, CALL LIGHT WITHIN REACH. WILL CONTINUE TO MONITOR.
--- NOTE | 2020-06-28 19:30 | NUR ---
RECEIVED REPORT FROM WALKER GARZA DAYSHIFT NURSE AT BEDSIDE FOR CONTINUITY OF CARE. PT IS ALERT, AOX 3 WITH RIGHT SIDE EJ INTACT AND ASYMPTOMATIC RUNNING 1/2 NS AT 120. PT ALSO HAS MONTGOMERY CATHETER INTACT AND DRAINED 1200 OF CLOUDY YELLOW URINE. ALL FALLS PROTOCOL IN PLACE.
[2020-06-28 20:00] VITALS: BP 131/61
--- NOTE | 2020-06-28 21:00 | NUR ---
PT V/S FOLLOWS: T 97.9 P 80 R 18 B/P 131/61 02 99% ON ROOM AIR. PT FINGERSTICK IS 353, SHE WAS GIVEN 10 UNITS OF COVERAGE AND 10 UNITS OF LANTUS ORDERED. PLUS A SNACK. ALL OTHER REQUESTS ATTENDED BY STAFF.
--- NOTE | 2020-06-28 22:30 | NUR ---
PT C/O THAT MONTGOMERY CATHETER WAS LEAKING. BALLOON DEFLATED AND REINFLATED HIGHER IN THE BLADDER WILL MONITOR FOR EFFECTIVENESS. PT WAS CLEANED AND NEW LINENS GIVEN. ALL OTHER REQUESTS ATTENDED BY STAFF.
[2020-06-29] VITALS: BP 127/54
--- NOTE | 2020-06-29 | NUR ---
PT MONTGOMERY CATHETER STILL LEAKING.IT WAS REPLACED WITH A NEW MONTGOMERY CATHETER 16 [place]. PT TOLERATED PROCEDURE. WAS CLEANED AND PROVIDED WITH NEW LINENS. ALL FALLS PRECAUTIONS IN PLACE.
[2020-06-29] MEDS: NACL 0.45% 1,000 ML IV SCH ×2 (01:25→09:42)
[2020-06-29] MEDS: ACETAMINOPHEN 325 MG TAB PO PRN (01:34)
--- NOTE | 2020-06-29 01:38 | NUR ---
PT C/O MODERATE HEADACHE 5/10 GIVEN PO/PRN TYLENOL.
--- NOTE | 2020-06-29 02:30 | NUR ---
PT SLEEPING POSITIVE EFFECT OF TYLENOL ON H/ACHE. MONTGOMERY CATHETER INTACT AND ASYMPTOMATIC. NEW BAG OF FLUID REPLACED ORDERED 1/2 NS HUNG AND RUNNING AT 100MLS/HR ORDERED.
--- NOTE | 2020-06-29 02:49 | NUR ---
GOT A CALL FROM RICHARD OF [facility] THAT THE EARLIEST TIME THEY CAN BIOGEOGRAPHER THE PT IS 0830 INSTEAD OF 0730 DUE TO SHORT OF PERSONNEL, CALLED [facility] AND TALKED TO VP & GENERAL COUNSEL LAMONTE AND MADE AWARE OF THE DELAY, STATED IT'S NOT GONNA BE A PROBLEM SINCE THE DISPENSARY TECHNICIAN WILL USUALLY STAY FOR SEVERAL HOURS AND TO CALL RADIOLOGY IN THE MORNING TO LET THEM KNOW OF THE DELAY.
[2020-06-29] MEDS: VANCOMYCIN 500 MG in DEXTROSE 5% 100 ML IV SCH ×3 (06:01→21:25)
[2020-06-29] MEDS: INSULIN LISPRO SLIDING SCALE 100 UNITS/ML VIAL SUBQ PRN ×4 (06:15→20:18)
[2020-06-29] MEDS: BLOOD GLUCOSE MONITORING 1 DEV DEV FS SCH ×4 (06:17→20:15)
--- NOTE | 2020-06-29 06:31 | NUR ---
PT AM FINGERSTICK IS 274, PT GIVEN HUMALOG COVERAGE ACCORDING TO S/S. ALL FALLS AND CONTACT PRECAUTIONS IN PLACE.
[2020-06-29 06:38] LABS: BASOPHILS % (AUTO) 0.4 % (0.0-2.0); EOSINOPHILS # (AUTO) 0.1 K/uL (0-0.4); EOSINOPHILS % (AUTO) 2.1 % (0.0-4.0); HEMATOCRIT 36.3 % (36-48); LYMPHOCYTES # (AUTO) 2.5 K/uL (2.5-16.5); LYMPHOCYTES % (AUTO) 35.8 % (20.5-51.1); MEAN CORPUSCULAR HEMOGLOBIN 32 pg (27-31); MEAN CORPUSCULAR HGB CONC 33 g/dL (33-37); MEAN CORPUSCULAR VOLUME 95.8 fL (80-94); MONOCYTES # (AUTO) 0.4 K/uL (0.8-1.0); MONOCYTES % (AUTO) 5.6 % (1.7-9.3); NEUTROPHILS % (AUTO) 56.1 % (42.2-75.2); PLATELET COUNT (AUTO) 137 K/uL (140-450); RED BLOOD CELL COUNT(AUTO) 3.79 MIL/uL (4.20-5.40); RED CELL DISTRIBUTION WIDTH 12.6 % (11.6-13.7); WHITE BLOOD COUNT (AUTO) 7.1 K/uL (4.8-10.8)
[2020-06-29 07:11] LABS: ANION GAP 12.4 (8-16); CARBON DIOXIDE 25.9 mmol/L (21-32); CREATININE 0.8 mg/dL (0.6-1.3); POTASSIUM 4.3 mmol/L (3.5-5.1)
--- NOTE | 2020-06-29 07:28 | NUR ---
RECEIVED ENDORSEMENT FROM NIGHT ASLEEP ON BED, BREATHING SPONTANEOUSLY AT ROOM AIR, NOT IN DISTRESS NOTED. WITH ONGOING IV FLUID 0.45% NS AT 120ML/HOUR INFUSING WELL AT RT IJ, G18 IV CANNULA NOTED. FOR MRI 0F SPINE AT 0830H TO [facility] [place]. SAFETY MEASURES IN PLACE AND CONTINUE MONITOR
--- NOTE | 2020-06-29 07:55 | NUR ---
CALLED [facility]PT #[phone] AND TALKED TO CHASE AND MADE AWARE THAT PT'S PRINCIPAL PROGRAMMER TIME WILL BE DELAYED AT 0830 INSTEAD INSTEAD OF 0730, STATED "THATS PERFECT" AND TO CALL ADMITTING WHEN PT IS ON HER WAY AT #[phone], ENDORSED TO AM CHARGE NURSE HANANE.
[2020-06-29] MEDS: MUPIROCIN CA NASAL 2% 1GM TUBE NS SCH (08:22)
[2020-06-29] MEDS: amLODIPine 5 MG TAB PO SCH (08:23)
[2020-06-29] MEDS: lisinopriL 10 MG TAB PO SCH (08:23)
[2020-06-29] MEDS: INSULIN LANTUS 100 UNITS/ML 10 ML VIAL SUBQ SCH ×2 (08:23→20:19)
--- NOTE | 2020-06-29 08:31 | NUR ---
FULLY AWAKE AND ALERT, DUE MEDICATION GIVEN
--- NOTE | 2020-06-29 08:35 | NUR ---
JUNIOR SALES REPRESENTATIVE [facility] CALLED THAT THE MRI IS CANCELLED AND RESCHEDULED TOMORROW 06/30/20 AT 1000H AND TRANSPORT WILL SOLUTIONS SPECIALIST THE PATIENT BY 0900H. DR. JIMENES NOTIFIED IN THE UNIT.
--- NOTE | 2020-06-29 10:10 | NUR ---
Anupam fuel testing technician at [facility] called at 830 asking for the patient for MRI schedule at 830 am. Patient is still here in [facility] and not picked up yet from [facility]. Anupam stated that will not be available after 830 am and MRI need to be reschedule. Transport came in at 0845 am to pear picker the patient. It is reschedule at 10 am tomorrow 06/30/20 with Anupam and arranged transport with [facility] at 0900 am.
--- NOTE | 2020-06-29 10:15 | NUR ---
SPOKE WITH ALEJANDRA FROM [facility], RESCHEDULED CAMPUS AMBASSADOR FOR TOMORROW AT 0900 AM GOING TO [facility] FOR MRI AT 1000 AM (06/30/2020). DRAGAN ASSIGNED MADE AWARE.
[2020-06-29] MEDS: CHLORHEXADINE GLUC 2% CLOTH TP SCH (11:48)
--- NOTE | 2020-06-29 11:49 | NUR ---
RANDOM SUGAR LEVEL-324, HUMALOG 8UNITS PER SLIDING SCALE GIVEN.
[2020-06-29 12:00] VITALS: BP 138/72
--- NOTE | 2020-06-29 12:16 | NUR ---
VITAL SIGN TAKEN AND RECORDED, STABLE. LUNCH SERVED WITH MECHANICAL SOFT DIET, ABLE TO FEED HERSELF.
--- NOTE | 2020-06-29 14:03 | NUR ---
FULLY AWAKE AND ALERT, DUE MEDICATION GIVEN.
--- NOTE | 2020-06-29 16:36 | NUR ---
RANDOM BLOOD SUGAR-234 HUMALOG 4UNITS SUBQ ASPER SLIDING SCALE GIVEN.
--- NOTE | 2020-06-29 18:50 | NUR ---
SCHOOL CAFETERIA HEAD COOK ASSISTED TO BEDSIDE COMMODE, PASSED LARGE AMOUNT OF BROWNISH FORMED STOOL NOTED, BACK TO BED AND ASSISTED WELL.
--- NOTE | 2020-06-29 19:25 | NUR ---
ENDORSED TO NANOTECHNOLOGY TECHNICIAN IN STABLE CONDITION FOR CONTINUITY OF CARE
--- NOTE | 2020-06-29 19:30 | NUR ---
RECEIVED PT FROM DAY RN. PT AOX3 ON ROOM AIR. RESPIRATIONS EVEN AND UNLABORED. NO DISTRESS NOTED. DENIES PAIN AT THIS TIME. IV SITE RIGHT EJ 18G PATENT AND INTACT, RUNNING 1/2 NS AT 120 ML/HR. SAFETY MEASURES IN PLACE. CALL LIGHT WITHIN REACH. WILL CONTINUE TO MONITOR
--- NOTE | 2020-06-29 20:19 | NUR ---
PT BLOOD SUGAR 305. ADMINISTERED 8 UNITS INSULIN PER SLIDING SCALE AND SCHEDULED MEDICATION. PT TOLERATED WELL. WILL CONTINUE TO MONITOR
--- NOTE | 2020-06-29 22:45 | NUR ---
PT RESTING IN BED, WATCHING TELEVISION. NO DISTRESS NOTED. DENIES PAIN. WILL CONTINUE TO MONITOR
[2020-06-30] VITALS: BP 127/80
--- NOTE | 2020-06-30 01:15 | NUR ---
PT ASLEEP IN BED. RESPIRATIONS EVEN AND UNLABORED. NO DISTRESS NOTED. WILL CONTINUE TO MONITOR
--- NOTE | 2020-06-30 03:50 | NUR ---
PT MONTGOMERY CATHETER LEAKING. REPLACED WITH A NEW MONTGOMERY CATHETER 16 PARAGUAYAN. PT TOLERATED WELL. PT WAS CLEANED AND PROVIDED WITH NEW LINENS. SAFETY PRECAUTIONS IN PLACE. CALL LIGHT WITHIN REACH. WILL CONTINUE TO MONITOR
[2020-06-30 04:00] VITALS: BP 119/61
[2020-06-30] MEDS: VANCOMYCIN 500 MG in DEXTROSE 5% 100 ML IV SCH ×4 (05:31→23:38)
[2020-06-30 06:34] LABS: BASOPHILS % (AUTO) 0.5 % (0.0-2.0); EOSINOPHILS # (AUTO) 0.1 K/uL (0-0.4); EOSINOPHILS % (AUTO) 1.8 % (0.0-4.0); HEMATOCRIT 38.8 % (36-48); HEMOGLOBIN 12.8 g/dL (12.0-16.0); LYMPHOCYTES # (AUTO) 2.7 K/uL (2.5-16.5); LYMPHOCYTES % (AUTO) 38.5 % (20.5-51.1); MEAN CORPUSCULAR HEMOGLOBIN 31 pg (27-31); MEAN CORPUSCULAR HGB CONC 33 g/dL (33-37); MEAN CORPUSCULAR VOLUME 94.5 fL (80-94); MONOCYTES # (AUTO) 0.4 K/uL (0.8-1.0); MONOCYTES % (AUTO) 5.8 % (1.7-9.3); NEUTROPHILS # (AUTO) 3.8 K/uL (1.8-7.7); NEUTROPHILS % (AUTO) 53.4 % (42.2-75.2); PLATELET COUNT (AUTO) 165 K/uL (140-450); RED BLOOD CELL COUNT(AUTO) 4.11 MIL/uL (4.20-5.40); RED CELL DISTRIBUTION WIDTH 12.5 % (11.6-13.7)
[2020-06-30] MEDS: BLOOD GLUCOSE MONITORING 1 DEV DEV FS SCH ×4 (06:38→21:00)
--- NOTE | 2020-06-30 06:38 | NUR ---
PT BLOOD SUGAR 201. HELD INSULIN DUE TO PT SCHEDULED FOR MRI OF THE SPINE AND PT PUT ON NPO PER RADIOLOGY AND CHARGE NURSE.
[2020-06-30 06:49] LABS: ANION GAP 11.6 (8-16); CARBON DIOXIDE 26.4 mmol/L (21-32); CREATININE 0.7 mg/dL (0.6-1.3)
--- NOTE | 2020-06-30 07:15 | NUR ---
RECEIVED REPORT FROM MEASURING MACHINE TENDER NURSE FOR CONTINUITY OF CARE. PATIENT IS AAOX3. RESPIRATORY EVEN AND UNLABORED ON ROOM AIR. NO ACUTE DISTRESS NOTED. DENIES PAIN AT THIS TIME. IV SITE RIGHT EJ 18 G, RUNNING 1/2 NS TKO. PATIENT WAS SCHEDULED TO TRANSFER TO [place] FOR MRI SPINE. SAFETY MEASURES IN PLACE, WILL CONTINUE TO MONITOR.
--- NOTE | 2020-06-30 07:15 | NUR ---
ENDORSED PT TO DAY RN FOR CONTINUITY OF CARE, PT IS STABLE
[2020-06-30 08:00] VITALS: BP 133/61
[2020-06-30] MEDS: lisinopriL 10 MG TAB PO SCH (09:00)
[2020-06-30] MEDS: INSULIN LANTUS 100 UNITS/ML 10 ML VIAL SUBQ SCH ×2 (09:00→21:00)
[2020-06-30] MEDS: amLODIPine 5 MG TAB PO SCH (09:00)
[2020-06-30] MEDS: MUPIROCIN CA NASAL 2% 1GM TUBE NS SCH (09:14)
--- NOTE | 2020-06-30 09:45 | NUR ---
PATIENT WAS PICKED UP BY AMBULANCE TO TRANSFER TO [place] FOR MRI OF LUMBAR SPINE.
--- NOTE | 2020-06-30 11:45 | NUR ---
PATIENT WAS BROUGHT BACK POST MRI SCAN OF LUMBAR SPINE. PATIENT'S COMPLAINT OF IV SITE PAIN, WILL TRY TO INSERT NEW ONE.
[2020-06-30] MEDS: CHLORHEXADINE GLUC 2% CLOTH TP SCH (12:12)
[2020-06-30] MEDS: INSULIN LISPRO SLIDING SCALE 100 UNITS/ML VIAL SUBQ PRN (12:13)
--- NOTE | 2020-06-30 12:13 | NUR ---
4 UNITS OF HUMALOG ADMINISTERED FOR BLOOD GLUCOSE LEVEL 201. PATIENT TOLERATED WELL. SAFETY MEASURES IN PLACE, WILL CONTINUE TO MONITOR.
--- NOTE | 2020-06-30 14:05 | NUR ---
INSERT IV AT RIGHT FOREARM 22G WITH FIRST ATTEMPT, GOOD BLOOD RETURN. PATIENT TOLERATED WELL. SAFETY MEASURES IN PLACE, WILL CONTINUE TO MONITOR.
--- NOTE | 2020-06-30 14:15 | NUR ---
ADMINISTERED VANCOMYCIN SCHEDULED, PATIENT TOLERATED WELL, SAFETY MEASURES IN PLACE, WILL CONTINUE TO MONITOR.
--- NOTE | 2020-06-30 17:15 | NUR ---
PATIENT REFUSED ACCUCHECK.
--- NOTE | 2020-06-30 19:15 | NUR ---
ENDORSED PATIENT TO BANK ADVISOR NURSE FOR CONTINUITY OF CARE.
--- NOTE | 2020-06-30 19:20 | NUR ---
RECEIVED PT FROM DAY RN. AOX3 ON ROOM AIR. RESPIRATIONS EVEN AND UNLABORED. NO DISTRESS NOTED. NO C/O PAIN AT THIS TIME. IV SITE RFA 22G, INTACT AND PATENT. MONTGOMERY CATHETER IN PLACE, DRAINING YELLOW URINE. SAFETY MEASURES IN PLACE. CALL LIGHT WITHIN REACH. WILL CONTINUE TO MONITOR.
[2020-06-30 20:00] VITALS: BP 119/83
--- NOTE | 2020-06-30 21:10 | NUR ---
PATIENT REFUSED ACCUCHECK
--- NOTE | 2020-06-30 22:20 | NUR ---
PT AGREED TO CHECK BLOOD SUGAR. PT BLOOD SUGAR 395. PT REFUSED TO TAKE INSULIN. EDUCATED PT ON DANGERS OF NOT TAKING INSULIN. EDUCATED PT ON IMPORTANCE OF INSULIN. PT STILL REFUSED AND STATED, "I DONT CARE. I DONT WANT TO TAKE IT. I'M USED TO HAVING BLOOD SUGAR HIGH IN THE FOUR HUNDREDS AND IM OK WITH IT AND FEEL FINE." WILL CONTINUE TO MONITOR PT.
--- NOTE | 2020-06-30 23:00 | NUR ---
PT IN BED WATCHING TELEVISION. NO DISTRESS NOTED. DENIES PAIN. WILL CONTINUE TO MONITOR
--- NOTE | 2020-07-01 01:15 | NUR ---
PT ASLEEP IN BED. RESPIRATIONS EVEN AND UNLABORED. NO DISTRESS NOTED. WILL CONTINUE TO MONITOR
--- NOTE | 2020-07-01 03:30 | NUR ---
CLEANED PT AND CHANGED LINENS. PT TOLERATED WELL. PROVIDED NEW GOWN BUT PT REFUSED TO BE CHANGED. WILL CONTINUE TO MONITOR
--- NOTE | 2020-07-01 04:00 | NUR ---
PT REFUSED TO HAVE VITAL SIGNS TAKEN. PT STATED, "NO. I JUST WANT TO SLEEP" NO DISTRESS NOTED. WILL CONTINUE TO MONITOR PT
--- NOTE | 2020-07-01 05:30 | NUR ---
PT REFUSED TO HAVE LABS DRAWN. EDUCATED PT ON THE IMPORTANCE OF MONITORING THERAPEUTIC LEVELS OF MEDICATION. PT GUARDING HER ARMS. PT STILL REFUSED. WILL CONTINUE TO MONITOR
[2020-07-01] MEDS: VANCOMYCIN 500 MG in DEXTROSE 5% 100 ML IV SCH ×2 (06:17→14:56)
[2020-07-01] MEDS: BLOOD GLUCOSE MONITORING 1 DEV DEV FS SCH ×3 (06:54→16:58)
[2020-07-01] MEDS: INSULIN LISPRO SLIDING SCALE 100 UNITS/ML VIAL SUBQ PRN ×2 (06:58→17:33)
--- NOTE | 2020-07-01 06:58 | NUR ---
PT BLOOD SUGAR 328, ADMINISTERED 8 UNITS INSULIN PER MD ORDERS. PT TOLERATED WELL. NO DISTRESS NOTED
--- NOTE | 2020-07-01 07:20 | NUR ---
ENDORSED PT TO DAY RN FOR CONTINUITY OF CARE. PT IN STABLE CONDITION
--- NOTE | 2020-07-01 07:20 | NUR ---
RECEIVED REPORT FROM PHARMACY CUSTOMER CARE SPECIALIST NURSE FOR CONTINUITY OF CARE. PATIENT SLEEPING IN BED, VISIBLE CHEST RISE AND FALLS. NO ACUTE DISTRESS NOTED. MONTGOMERY CATHETER IN PLACE, SAFETY MEASURES IN PLACE, WILL CONTINUE TO MONITOR.
[2020-07-01] MEDS: lisinopriL 10 MG TAB PO SCH (09:50)
[2020-07-01] MEDS: amLODIPine 5 MG TAB PO SCH (09:50)
[2020-07-01] MEDS: INSULIN LANTUS 100 UNITS/ML 10 ML VIAL SUBQ SCH (09:53)
--- NOTE | 2020-07-01 11:20 | NUR ---
PATIENT REFUSED TO HAVE BLOOD GLUCOSE LEVEL CHECK DONE AT THIS TIME. PATIENT GET VERY ANGRY. TRIED TO CALM PATIENT DOWN, HOWEVER, PATIENT DID NOT LISTEN AT ALL. WILL COME BACK AND CHECK LATER.
--- NOTE | 2020-07-01 11:50 | NUR ---
PATIENT'S BLOOD GLUCOSE LEVEL 443, INFORMED DR. SMITH. NEW ORDER OBTAINED: GIVE 12 U OF HUMALOG AND HE WILL INCREASE LANTUS LEVEL LATER. WILL FOLLOW UP AND CARRY OUT.
--- NOTE | 2020-07-01 11:55 | NUR ---
SPOKE TO [facility] SAE THAT PATIENT'S BS IS EXTREMELY HIGH AND PATIENT KEEPS ASKING FOR FOOD. AND SAE SAID WILL INCREASE PATIENT'S PROTEIN AND PROVIDE DIET DRINKS TO CONTROL HER HUNGER.
[2020-07-01] MEDS ORDERED: INSULIN LISPRO 100 UNITS/ML VIAL SUBQ SCH (12:25)
--- NOTE | 2020-07-01 12:25 | NUR ---
SPOKE WITH PATIENT'S SISTER OVER THE PHONE, UPDATED PATIENT'S CONDITION. PER PATIENT'S SISTER, PATIENT WAS VERY NEEDY AND HAS NO TEMPER TO WAIT. SHE WANTED PT TO HAVE PSYCH EVAL IF POSSIBLE. PT'S SISTER WANTED TO TALK TO PATIENT OVER THE PHONE, INFORMED HER WILL GO TO HER ROOM AND HELP PATIENT TO ANSWER THE PHONE.
--- NOTE | 2020-07-01 12:32 | NUR ---
ADMINISTERED 12 UNIT OF HUMALOG FOR BLOOD GLUCOSE LEVEL 443. PATIENT IS ANXIOUS AND MAD COMPLAINT OF THAT NO ONE WOKE HER UP WHEN LUNCH WAS DELIVERED, ALSO COMPLAINT OF LUNCH IS COLD AND NOT ENOUGH. EXPLAINED TO THE PATIENT THAT I CAN CALL [employer] AND SEE IF WE CAN OFFER HER MEAL, ALSO NEED TO CONTROL HER DIET AND DECREASE THE BS LEVEL. PATIENT IS LISTENING AND NOT IN GOOD MOOD.
--- NOTE | 2020-07-01 12:35 | NUR ---
PATIENT'S SISTER WANTED ME TO PROGRAM MANAGEMENT INTERN THE PHONE IN PATIENT'S ROOM AND SHE WANTED TO TALK TO THE PATIENT. WHEN GOT TO PATIENT'S ROOM, PATIENT SUDDENLY GET VERY AGITATED AND DOESNT WANT TO ANSWER THE PHONE, EXPLAINED TO PATIENT'S SISTER AND SHE HEARD ALL THE CONVERSATIONS, PATIENT ABUSE THE LANGUAGES. SN TRIED TO CALM PATIENT DOWN, HOWEVER, FEEL THREATENED BY THE PATIENT. SN LEFT PATIENT'S ROOM.
--- NOTE | 2020-07-01 12:38 | NUR ---
REPORT TO DR. SMITH THAT PATIENT IS VERY AGITATED. PATIENT'S SISTER WANTED PT HAVE PSYCH EVAL. DR. SMITH STATED WILL ORDER MEDICATION FOR PATIENT, AND NO PSYCH EVAL NEEDED AT THIS TIME.
--- NOTE | 2020-07-01 14:19 | NUR ---
ENDORSED PATIENT TO DAVID/RN FOR CONTINUITY OF CARE.
--- NOTE | 2020-07-01 14:25 | NUR ---
RECEIVED BEDSIDE REPORT FROM DAYSHIFT NURSE. PT RESTING IN BED. ABLE TO MAKE NEEDS KNOWN. RESPIRATIONS EVEN AND UNLABORED WITH NO SOB OR RESPIRATORY DISTRESS. SKIN WARM AND DRY TO TOUCH. IV SITE IN LFA 22G IS CLEAN, DRY, AND INTACT. SAFETY MEASURES IN PLACE. WILL CONTINUE TO MONITOR
--- NOTE | 2020-07-01 15:00 | NUR ---
ADMINISTERED SCHED MED PRESCRIBED PER MD ORDER. PT TOLERATED WELL. MEDICATION EDUCATION PERFORMED. PT VERBALIZED UNDERSTANDING. SAFETY MEASURES IN PLACE. WILL CONTINUE TO MONITOR
[2020-07-01 16:00] VITALS: BP 107/61
--- NOTE | 2020-07-01 16:30 | NUR ---
PT BLOOD SUGAR IS 316. PRN INSULIN WILL BE ADMINISTERED PRESCRIBED PER MD ORDER WITH NEXT MEAL. SAFETY MEASURES IN PLACE. WILL CONTINUE TO MONITOR
--- NOTE | 2020-07-01 17:00 | NUR ---
PT SIGNED CONSENT FOR ESTEFANI W/PROBE PLACEMENT FOR 910 AT 1000. SAFETY MEASURES IN PLACE. WILL CONTINUE TO MONITOR
--- NOTE | 2020-07-01 17:30 | NUR ---
ADMINISTERED SCHED MED PRESCRIBED PER MD ORDER. PT TOLERATED WELL. MEDICATION EDUCATION PERFORMED. PT VERBALIZED UNDERSTANDING. SAFETY MEASURES IN PLACE. WILL CONTINUE TO MONITOR
--- NOTE | 2020-07-01 18:10 | NUR ---
PATIENT IS REQUESTING TO LEAVE AMA BECAUSE SHE STATED, "I DO NOT WANT TO BE HERE ANYMORE. I AM SICK OF BEING HERE. I AM SIGNING MYSELF OUT OF HERE AND GETTING THE FUCK OUT! GET ME OUT NOW!"
--- NOTE | 2020-07-01 18:15 | NUR ---
ENCOURAGE PATIENT TO STAY AND DISCUSSED RISKS AND BENEFITS FOR STAYING IN THE HOSPITAL. PATIENT STILL REFUSED AND BECAME ANGRY WITH THE THOUGHT OF STAYING. PATIENT STATED, "I DON'T CARE! I WANT OUT OF THIS PLACE! YOU BETTER GET ME THE FUCK OUT OF HERE!" PAGED DR. JIMENES TO NOTIFY THAT PATIENT IS LEAVING AMA. PAGED DR. GARCIA TO LET HIM KNOW THAT PATIENT IS LEAVING AMA. BOTH DOCTORS ARE AWARE. SAFETY MEASURES IN PLACE. WILL CONTINUE TO MONITOR. PT SIGNED AMA PAPER. WILL CONTINUE TO MONITOR
--- NOTE | 2020-07-01 19:15 | NUR ---
RECEIVED PT AAOX4 . NID , UNSTEADY GAIT - FALL RISK , PER AM NURSE OCHOA PT. IS AMA , AMA DELORIS SIGNED , DR. JIMENES AND DR. GARCIA INFORMED BY AM NURSE OCHOA , SHE SAID BOTH DOCTORS ARE AWARE THAT THE PT WILL BE DISCHARGE TONIGHT AMA .PT HAS NO IV SITE ALREADY REMOVED BY NURSE OCHOA . BELONGINGS ARE ARE READY GIVEN BY NURSE OCHOA . PER PT SHE HAS PRIVATE CAR AND HER FRIEND ALREADY WAITING OUTSIDE TO TECHNICAL OPERATIONS VICE PRESIDENT HER . WILL CONT. TO MONITOR .
--- NOTE | 2020-07-01 19:15 | NUR ---
ENDORSED TO NIGHTSHIFT FOR CONTINUITY OF CARE. PT IS STABLE
--- NOTE | 2020-07-01 19:50 | NUR ---
DISCHARGE PER WHEELCHAIR , PT DROP BY BY VALENCIA DOUGLASS TO THE LOBBY. PT COMPUTING SERVICES DIRECTOR BY FRIEND . DISCHARGE AMA .
[2020-07-01] MEDS ORDERED: QUEtiapine FUMARATE 25 MG TAB PO SCH (21:00)
== END 2020-07-01 19:50 | disposition home or self-care (01) | DRG 720 ==
LOC: EDBD 15:00 → MED 15:00 → MIC 17:48 → MTU 06-25 19:10
PROVIDERS: ADMIT Internal Medicine; ATTEND Internal Medicine
DX: A41.02 Sepsis due to Methicillin resistant Staphylococcus aureus (principal); E11.10 Type 2 diabetes mellitus with ketoacidosis without coma; N17.9 Acute kidney failure, unspecified; E87.0 Hyperosmolality and hypernatremia; E86.0 Dehydration; G93.41 Metabolic encephalopathy; K85.90 Acute pancreatitis without necrosis or infection, unspecified; Z91.19 Patient's noncompliance with other medical treatment and regimen; F15.10 Other stimulant abuse, uncomplicated; Z20.828 Contact with and (suspected) exposure to other viral communicable diseases
CPT/HCPCS: 36415; 36600; 51702; 59025; 70450; 71045; 72125; 80048; 80053; 80202; 80305; 81003; 82803; 82947; 82948; 83036; 83605; 83690; 83735; 84100; 84436; 84439; 84443; 84479; 84484; 85025; 85610; 85651; 86140; 87040; 87081; 87086; 87186; 96365; 96368; 96375; 96376; 97110; 97112; 97116; 97161-GP; 97530; 99291; G0482; J1815; J2270; J2405; J2543; J3370; J3480; J7030; J7060; Q0092

== ENCOUNTER 2020-10-16 16:23 | Inpatient (IN) | payer OTHER, SELFPAY ==
[~2020-10-16] VITALS: Ht 162.6 cm; Wt 68.0 kg
[2020-10-16 16:37] VITALS: BP 130/90
--- NOTE | 2020-10-16 17:19 | NUR ---
FOUND PT LYING ON THE FLOOR IN THE TENT WHILE ROUNDING PTS. PT STATES SHE DID NOT FALL JUST WANTED TO LIE DOWN. ASSISTED PT TO LIE ON THE COUCH IN THE TENT.
--- NOTE | 2020-10-16 18:22 | NUR ---
PT IS BEING TAKEN TO [facility].
--- NOTE | 2020-10-16 18:40 | NUR ---
54 YEAR OLD FEMALE BIBA FOR NOT FEELING WELL, HAS COUGH, FEVER, WEAKNESS, HEADACHE X LAST WEEK. PT BLOOD SUGAR IN TRIAGE WAS TOO HIGH TO READ. ERMD MADE AWARE OF PT BLOOD SUGAR. PT PLACED ON MONITOR. PT AOX4, BREATHING EVEN AND UNLABORED, SKIN WARM AND DRY. BED IN LOWEST POSITION, LOCKED, BED RAIL UPX1. PMH - DM2 ALLERGIES - IBUPROFEN, PEANUTS
[2020-10-16 19:25] LABS: BASOPHILS % (AUTO) 0.2 % (0.0-2.0); HEMATOCRIT 47.2 % (36-48); HEMOGLOBIN 15.7 g/dL (12.0-16.0); MEAN CORPUSCULAR HEMOGLOBIN 31 pg (27-31); MEAN CORPUSCULAR HGB CONC 33 g/dL (33-37); MEAN CORPUSCULAR VOLUME 94.3 fL (80-94); MONOCYTES # (AUTO) 0.5 K/uL (0.8-1.0); MONOCYTES % (AUTO) 6.7 % (1.7-9.3); NEUTROPHILS # (AUTO) 4.6 K/uL (1.8-7.7); NEUTROPHILS % (AUTO) 65.1 % (42.2-75.2); PLATELET COUNT (AUTO) 206 K/uL (140-450); RED BLOOD CELL COUNT(AUTO) 5.01 MIL/uL (4.20-5.40)
--- NOTE | 2020-10-16 19:26 | NUR ---
REPORT RECEIVED FROM JEANNE GARZA FOR CONTINUITY OF CARE.
[2020-10-16] MEDS ORDERED: cefTRIAXone 1,000 MG VIAL ONE (19:34)
[2020-10-16 19:51] LABS: ALBUMIN 3.2 g/dL (3.4-5.0); CARBON DIOXIDE 17.6 mmol/L (21-32); CREATININE 1.5 mg/dL (0.6-1.3); POTASSIUM 5.9 mmol/L (3.5-5.1); TOTAL BILIRUBIN 0.5 mg/dL (0.0-1.0)
--- NOTE | 2020-10-16 20:10 | NUR ---
FLU, NOVEL, AND TIMOTEO SWABS COLLECTED AND HANDED TO MERCHANDISE WORKER.
[2020-10-16 20:14] LABS: ANION GAP 26.3 (8-16)
[2020-10-16] MEDS ORDERED: NACL 0.9% 1,000 ML IV ONE ×3 (21:05→23:35)
[2020-10-16] MEDS ORDERED: INSULIN REGULAR, HUMAN 100 UNIT in NACL 0.9% 100 ML IV ONE ×2 (21:05)
[2020-10-16] MEDS ORDERED: AZITHROMYCIN 1,000 MG in DEXTROSE 5% 500 ML IV ONE (21:15)
[2020-10-16] MEDS ORDERED: AZITHROMYCIN 500 MG INJ VIAL IV ONE (21:30)
--- NOTE | 2020-10-16 21:37 | NUR ---
PATIENT MOVED TO BED 12
--- NOTE | 2020-10-16 21:58 | NUR ---
Ray rivera in [facility] - 10/16/20 at 2317 by [facility] AT THIS TIME. NO REPORT RECEIVED
--- NOTE | 2020-10-16 22:00 | NUR ---
# 16 FR Urinary catheter inserted utilizing sterile technique. Immediate return of 100 ml YELLOW, CLEAR urine noted. Urine sample collected and sent to lab. Pt tolerated procedure WELL.
--- NOTE | 2020-10-16 22:54 | NUR ---
patient refused abg. dr. arshad aware
--- NOTE | 2020-10-16 22:54 | NUR ---
INSULIN DRIP STARTED AT THIS TIME
[2020-10-16 23:46] LABS: APPEARANCE,URINE CLEAR (CLEAR); BILIRUBIN,URINE NEGATIVE (NEGATIVE); BLOOD, URINE 1+ (NEGATIVE); COLOR,URINE YELLOW (YELLOW); LEUKOCYTE ESTERASE ,URINE NEGATIVE (NEGATIVE); NITRITE, URINE NEGATIVE (NEGATIVE); UGLUCOSE 3+ (NEGATIVE)
[2020-10-16 23:59] LABS: RBC,URINE 0-5 /HPF (0-5); WBC,URINE NONE SEEN /HPF (0-5)
--- NOTE | 2020-10-17 00:01 | NUR ---
LAB AT BEDSIDE
[2020-10-17 00:39] LABS: PROTHROMBIN TIME 9.7 secs (10.8-13.4)
[2020-10-17] MEDS ORDERED: NACL 0.9% 1,000 ML IV ONE (01:05)
--- NOTE | 2020-10-17 01:30 | NUR ---
BLOOD SUGAR CHECK 311. ON INSULIN DRIP WILL CONTINUE TO MONITOR.
--- NOTE | 2020-10-17 02:30 | NUR ---
BLOOD SUGAR CHECK 399. ON INSULIN DRIP WILL CONTINUE TO MONITOR.
[2020-10-17] MEDS ORDERED: LORazepam 1 MG TAB PO PRN (02:45)
[2020-10-17] MEDS ORDERED: ACETAMINOPHEN 325 MG TAB PO PRN (02:45)
[2020-10-17] MEDS ORDERED: MAG SULF 2000 MG/WATER PREMIX 50 ML IV PRN (02:45)
[2020-10-17] MEDS ORDERED: HYDROcodone/APAP 5/325 MG 1 TAB TAB PO PRN (02:45)
[2020-10-17] MEDS ORDERED: INSULIN REGULAR, HUMAN 100 UNIT in NACL 0.9% 100 ML IV SCH ×2 (02:55)
[2020-10-17] MEDS: BLOOD GLUCOSE MONITORING 1 DEV DEV FS SCH ×8 (02:55→20:26)
[2020-10-17] MEDS ORDERED: DEXTROSE 50% 50 ML SYR IVP PRN (02:55)
--- NOTE | 2020-10-17 03:30 | NUR ---
BLOOD SUGAR CHECK 343. ON INSULIN DRIP WILL CONTINUE TO MONITOR.
--- NOTE | 2020-10-17 04:00 | NUR ---
BLOOD SUGAR CHECK 273. ON INSULIN DRIP. ERMD MADE AWARE. ORDERS TO START ON D5% 0.45% NS. WILL CONTINUE TO MONITOR.
[2020-10-17] MEDS ORDERED: DEXT 5% / NACL 0.45% 1,000 ML IV ONE (04:40)
--- NOTE | 2020-10-17 06:12 | NUR ---
PT RESTING IN BED, EYES CLOSED RESPIRATIONS EVEN AND UNLABORED. CHEST RISE IS SYMMETRICAL, WILL CONTINUE TO MONITOR.
--- NOTE | 2020-10-17 07:23 | NUR ---
REPORT GIVEN TO JEANNE GARZA FOR CONTINUITY OF CARE
--- NOTE | 2020-10-17 08:42 | NUR ---
PATIENT HAS BEEN SCREENED AND CATEGORIZED HIGH NUTRITION RISK. PATIENT WILL BE SEEN WITHIN 1-2 DAYS OF ADMISSION. 10/17/20 10/18/[address]
[2020-10-17 10:45] LABS: ANION GAP 11.3 (8-16); CARBON DIOXIDE 22.8 mmol/L (21-32); POTASSIUM 3.1 mmol/L (3.5-5.1)
[2020-10-17] MEDS: DOCUSATE SODIUM 100 MG GELCAP PO SCH (12:19)
--- NOTE | 2020-10-17 12:40 | NUR ---
PT IS EATING LUNCH AT THIS TIME
--- NOTE | 2020-10-17 14:03 | NUR ---
PT FINISHED EATING LUNCH. PT CHANGED GOWN AND CLEANED.
--- NOTE | 2020-10-17 14:58 | NUR ---
ABG ATTEMPT X 1 PATIENT REFUSED ABG POST PUNCTURE NO EVIDENCE TRAUMA
[2020-10-17 14:59] LABS: CREATININE 0.9 mg/dL (0.6-1.3)
--- NOTE | 2020-10-17 15:57 | NUR ---
DR CESPEDES AT BEDSIDE, WAS SHOWN 260 BLOOD SUGAR READING. PER DR CESPEDES TO TAKE PT OFF OF INSULIN DRIP AND D5W, AND TO START NORMAL SALINE @ 60ML. DONE ORDERED.
--- NOTE | 2020-10-17 17:00 | NUR ---
PT CHANGED BED AND GOWN, ALL NEEDS MET
--- NOTE | 2020-10-17 19:00 | NUR ---
PT EATING DINNER AT THIS TIME
--- NOTE | 2020-10-17 19:20 | NUR ---
INSULIN DRIP WAS TITRATED TODAY ACCORDING TO PROTOCOL BEFORE BEING DISCONTINUED PER DR CESPEDES REQUEST
--- NOTE | 2020-10-17 19:21 | NUR ---
REPORT RECEIVED FROM JEANNE GARZA
[2020-10-17] MEDS ORDERED: cefTRIAXone 1,000 MG VIAL ONE (19:25)
--- NOTE | 2020-10-17 19:44 | NUR ---
PT ATE 50% OF DINNER. PT C/O GENERALIZED BODY ACHES, 06/01, MEDICATED WITH ZOFRAN AND MORPHINE. PT REMAINS ON BEDSIDE MONITOR AND RA.
--- NOTE | 2020-10-17 20:32 | NUR ---
ACCU CHECK DONE BS 368, NO JOSSE FOR SLIDING SCALE PAGE DR SMITH, DR BRAVO MARROQUIN FOR HIM, WAITING FOR RETURN CALL
[2020-10-17] MEDS ORDERED: AZITHROMYCIN 500 MG in DEXTROSE 5% 250 ML IV SCH (21:00)
[2020-10-17] MEDS ORDERED: PIPERACILLIN/TAZOBACTAM 3.375 GM VIAL IV ONE (21:09)
[2020-10-17] MEDS: MORPHINE SULFATE 4 MG/ML SYR IVP PRN (21:16)
[2020-10-17] MEDS: ONDANSETRON 4 MG/2 ML VIAL IVP PRN (21:17)
--- NOTE | 2020-10-17 23:52 | NUR ---
[PT LYING IN BED CRYING, PT HAD URINATED THROUGH HER DIAPER AND LENENS WHERE WET. ALL LENENS CHANGED ALONG GOWN AND PT WAS CLEANED UP. PT C/O CONTINUE BODY ACHES AND VAGINAL DISCOMFORT. WILL MEDICATE ORDERED FOR PAIN. PT REMAINS IN BEDSIDE MONITOR.
[2020-10-18] MEDS: MORPHINE SULFATE 4 MG/ML SYR IVP PRN ×2 (00:11→04:05)
[2020-10-18] MEDS: INSULIN LISPRO SLIDING SCALE 100 UNITS/ML VIAL SUBQ PRN ×4 (00:44→06:08)
--- NOTE | 2020-10-18 01:36 | NUR ---
WENT TO ASSIST BED 11, PT CRYING, WHEN ASKED WHY SHE STATED SHE LOST HER SISTER TO COVID YESTERDAY. PT REQUESTION SOMETHING TO HELP HER CALM DOWN.
[2020-10-18] MEDS: BLOOD GLUCOSE MONITORING 1 DEV DEV FS SCH ×3 (01:46→05:47)
--- NOTE | 2020-10-18 01:51 | NUR ---
DIAPER CHANGED, PT HAD URINATED IN DIPER. PT REQUESTING MEDICATION TO HELP CALM HER DOWN. MEDICATED WITH ATIVAN ORDERED
--- NOTE | 2020-10-18 03:09 | NUR ---
PT SLEEPING. REMAINS ON BEDSIDE MONITOR. BED IN LOWEST POSITION AND SIDERAIL UP X 1 FOR PT SAFETY. RESPIRATIONS REGULAR EVEN AND UNLABORED. PT ON A AND O2 SAT 97%
--- NOTE | 2020-10-18 03:22 | NUR ---
PT STATES SHE TAKES TWO INSULINS AT HOME BUT DOES NOT KNO WTHE NAMES OR DOSEAGES.
--- NOTE | 2020-10-18 03:58 | NUR ---
ATTEMPTED TO GET LIST OF HOME MEDS FROM PT, SHE SAYS SHE TAKES TWO DIFFERENT KINDS OF INSULIN BUT DOESN'T KNOW DOESAGES OR THE NAMES OF THE INSULIN. FOR MED RECON, LISTED UNKNOWN MEDS. PT ALSO C/O BODY ACHES, MEDICATED WITH ZOFRAN AND MS. REPOSTIONED IN BED FOR COMFORT
[2020-10-18] MEDS: ONDANSETRON 4 MG/2 ML VIAL IVP PRN (04:05)
--- NOTE | 2020-10-18 04:06 | NUR ---
BODY ACHES 06/01
--- NOTE | 2020-10-18 05:47 | NUR ---
ACCU CHECK 193. PT SLEEPING, REMAINS ON BEDSIDE MONITOR, O2 AT 97% ON ROOM AIR. BED IN LOWEST POSITION AND SIDERAIL FOR PT SAFETY. RESPIRATIONS REGULAR EVEN AND UNLABORED.
[2020-10-18] MEDS ORDERED: INTUBATION KIT MC ONE (06:09)
--- NOTE | 2020-10-18 07:21 | NUR ---
Pt report given to JEANNE GARZA. Transfer of care at this time.
[2020-10-18] MEDS ORDERED: ENOXAPARIN 40 MG/0.4 ML SYR SUBQ SCH (09:00)
[2020-10-18] MEDS: DOCUSATE SODIUM 100 MG GELCAP PO SCH (09:17)
--- NOTE | 2020-10-18 09:41 | NUR ---
PT ALERT AND AWAKE, BREATHING EVEN AND UNLABORED. HAS FINISHED EATING BREAKFAST
[2020-10-18 10:12] LABS: BASOPHILS % (AUTO) 0.2 % (0.0-2.0); EOSINOPHILS % (AUTO) 0.9 % (0.0-4.0); HEMATOCRIT 42.3 % (36-48); HEMOGLOBIN 14.3 g/dL (12.0-16.0); LYMPHOCYTES # (AUTO) 1.6 K/uL (2.5-16.5); LYMPHOCYTES % (AUTO) 37.2 % (20.5-51.1); MEAN CORPUSCULAR HEMOGLOBIN 31 pg (27-31); MEAN CORPUSCULAR HGB CONC 34 g/dL (33-37); MEAN CORPUSCULAR VOLUME 91.4 fL (80-94); MONOCYTES # (AUTO) 0.4 K/uL (0.8-1.0); MONOCYTES % (AUTO) 8.9 % (1.7-9.3); NEUTROPHILS # (AUTO) 2.3 K/uL (1.8-7.7); NEUTROPHILS % (AUTO) 52.8 % (42.2-75.2); PLATELET COUNT (AUTO) 194 K/uL (140-450); RED BLOOD CELL COUNT(AUTO) 4.62 MIL/uL (4.20-5.40); RED CELL DISTRIBUTION WIDTH 11.9 % (11.6-13.7); WHITE BLOOD COUNT (AUTO) 4.3 K/uL (4.8-10.8)
[2020-10-18 10:39] LABS: ALBUMIN 2.4 g/dL (3.4-5.0); ANION GAP 10.3 (8-16); CARBON DIOXIDE 27.2 mmol/L (21-32); CHOL/HDL RATIO 4.5 (1-4.5); CREATININE 0.6 mg/dL (0.6-1.3); MAGNESIUM 2.1 mg/dL (1.8-2.4); POTASSIUM 3.5 mmol/L (3.5-5.1); TOTAL BILIRUBIN 0.2 mg/dL (0.0-1.0)
--- NOTE | 2020-10-18 11:27 | NUR ---
10/18/2020 RD INITIAL ASSESSMENT COMPLETED PLEASE REFER TO NUTRITION ASSESSMENT UNDER CARE ACTIVITY FOR ESTIMATED NUTRITIONAL NEEDS. CONTINUE [address] C[address] DI[address] ORDERED RD TO FOLLOW-UP IN 3-5 DAYS PATIENT IS MODERATE RISK. LORETTA SRINIVASAN RD
--- NOTE | 2020-10-18 12:01 | NUR ---
PER DR MARTINS WILL BE DISCHARGING PT
--- NOTE | 2020-10-18 14:00 | NUR ---
PT ALERT AND AWAKE, BREATHING EVEN AND UNLABORED. VS STABLE ON MONITOR.
[2020-10-18 15:31] VITALS: BP 162/66
[2020-10-18 16:00] VITALS: BP 162/66
--- NOTE | 2020-10-18 16:00 | NUR ---
Patient discharged with v/s stable. Written and verbal after care instructions about DKA and COVID 19 given and explained. Patient verbalized understanding. Ambulatory with steady gait. All questions addressed prior to discharge. Advised to follow up with PMD.
--- NOTE | 2020-10-18 17:56 | NUR ---
CALLED MOTHER FOR 3 RD TIME AND SHE ADVISED SHE WAS ON HER WAY TO BEAD FORMING MACHINE OPERATOR THE PATIENT. PT FOUND WALKING WITH CANE TOWARDS FRONT OF HOSPITAL. PT STOPPED AND ADVISED HER MOTHER WAS ON THE WAY. PT W/C ASSISTED BACK TO TENT TO WAIT FOR RIDE.
--- NOTE | 2020-10-19 10:35 | NUR ---
LATE ENTRY -- NS COMPLETED AT 0140 10/17 , AZITHROMYCIN AT 0020 10/17, NS AT 2325 FOR BOTH INFUSIONS ON 10/16, AND ROCEPHIN 10/16
== END 2020-10-18 16:00 | disposition home or self-care (01) | DRG 137 ==
LOC: MED 16:23 → MTU 10-17 02:41
PROVIDERS: ADMIT Hospitalist; ATTEND Hospitalist
DX: U07.1 COVID-19 (principal); E11.10 Type 2 diabetes mellitus with ketoacidosis without coma; Z88.6 Allergy status to analgesic agent; Z91.010 Allergy to peanuts; E87.5 Hyperkalemia; Z91.14 Patient's other noncompliance with medication regimen; N28.9 Disorder of kidney and ureter, unspecified; N17.9 Acute kidney failure, unspecified
CPT/HCPCS: 36415; 71045; 80048; 80053; 81001; 82550; 82728; 83036; 83605; 83615; 83735; 83880; 83930; 84484; 85025; 85379; 85384; 85610; 85730; 87040; 87804; 93005; 99291; J0456; J0696; J1644; J1650; J1815; J2270; J2405; J2543; J7060; U0003

== ENCOUNTER 2021-06-22 18:23 | Emergency (ER) | payer OTHER, SELFPAY ==
[~2021-06-22] VITALS: Ht 162.6 cm; Wt 48.1 kg
[~2021-06-22 18:23] MED LIST: ACET-1182 PO; ASPI81CT95 PO; ATOR20TA40 PO; GABA300C PO; HUMSLIDE SUBQ; LEVE500T9 PO; LOV40I SUBQ; SERT50TA PO
[2021-06-22 18:45] VITALS: BP 147/59
--- NOTE | 2021-06-22 18:50 | NUR ---
Patient wheelchair assisted to bed 06
--- NOTE | 2021-06-22 19:13 | NUR ---
Report and transfer of care endorsed to Jackson, RN
--- NOTE | 2021-06-22 19:22 | NUR ---
dhara collected and walked to lab.
--- NOTE | 2021-06-22 19:25 | NUR ---
PT. IS A 55 Y/O FEMALE THAT CAME INTO ED WITH C/O OF GENERALIZED WEAKNESS. PT. STATES "I FEEL WEAK." PT. ALSO STATES SHE HAS PAIN IN HER LEFT LOWER ABDOMEN, RATING IT 9/10 ON THE PAIN SCALE AT THIS TIME. AAOX4; DENIES N/V/D. SKIN IS PINK/WARM/DRY; AAOX4 WITH EVEN AND STEADY GAIT; HR EVEN AND REGULAR; PT DENIES ANY FEVER, CP, SOB, OR COUGH AT THIS TIME; VSS; PATIENT POSITIONED FOR COMFORT; HOB ELEVATED; BEDRAILS UP X2; BED DOWN. ER MADE AWARE OF PT STATUS. PMH: ASTHMA, DM, HTN, BACK SURGERY ALLERGIES: IBUPROFEN, PEANUTS Addendum: 06/22/21 at 2038 by [facility] USES WALKER AND CANE FOR GAIT.
--- NOTE | 2021-06-22 19:30 | NUR ---
LAB AT BEDSIDE
--- NOTE | 2021-06-22 19:39 | NUR ---
XRAY AT BEDSIDE
--- NOTE | 2021-06-22 19:40 | NUR ---
ERMD FLAMMIA AT BEDSIDE
[2021-06-22 20:04] LABS: BASOPHILS % (AUTO) 0.2 % (0.0-2.0); EOSINOPHILS % (AUTO) 0.4 % (0.0-4.0); HEMATOCRIT 41.1 % (36-48); LYMPHOCYTES # (AUTO) 1.7 K/uL (2.5-16.5); MEAN CORPUSCULAR HEMOGLOBIN 32 pg (27-31); MEAN CORPUSCULAR HGB CONC 34 g/dL (33-37); MEAN CORPUSCULAR VOLUME 94.3 fL (80-94); MONOCYTES # (AUTO) 0.4 K/uL (0.8-1.0); MONOCYTES % (AUTO) 4.8 % (1.7-9.3); NEUTROPHILS # (AUTO) 7.1 K/uL (1.8-7.7); NEUTROPHILS % (AUTO) 76.6 % (42.2-75.2); PLATELET COUNT (AUTO) 227 K/uL (140-450); RED BLOOD CELL COUNT(AUTO) 4.36 MIL/uL (4.20-5.40); RED CELL DISTRIBUTION WIDTH 12.7 % (11.6-13.7); WHITE BLOOD COUNT (AUTO) 9.2 K/uL (4.8-10.8)
[2021-06-22] MEDS: ONDANSETRON 4 MG/2 ML VIAL IVP ONE (20:05)
[2021-06-22] MEDS: NACL 0.9% 1,000 ML IV ONE (20:05)
--- NOTE | 2021-06-22 20:20 | NUR ---
URINE COLLECTED AND WALKED TO LAB, HANDED TO RUBEN
[2021-06-22 20:25] LABS: ALBUMIN 3.2 g/dL (3.4-5.0); ANION GAP 12.1 (8-16); CARBON DIOXIDE 31.6 mmol/L (21-32); CREATININE 0.9 mg/dL (0.6-1.3); POTASSIUM 4.7 mmol/L (3.5-5.1); TOTAL BILIRUBIN 0.4 mg/dL (0.0-1.0)
--- NOTE | 2021-06-22 20:31 | NUR ---
CRITICAL LAB GLUCOSE 464 RECIEVED. PRIMARY NURSE AND ERMD MADE AWARE.
[2021-06-22 20:33] LABS: APPEARANCE,URINE CLEAR (CLEAR); BILIRUBIN,URINE NEGATIVE (NEGATIVE); BLOOD, URINE 3+ (NEGATIVE); COLOR,URINE YELLOW (YELLOW); LEUKOCYTE ESTERASE ,URINE NEGATIVE (NEGATIVE); NITRITE, URINE NEGATIVE (NEGATIVE); UGLUCOSE 3+ (NEGATIVE)
[2021-06-22 20:45] LABS: WBC,URINE 0-5 /HPF (0-5)
--- NOTE | 2021-06-22 21:08 | NUR ---
PT. IS IN POSITION ON LEFT SIDE, RESTING WITH EYES CLOSED. NO DISTRESS NOTED AT THIS TIME. WILL CONT. TO MONITOR
[2021-06-22] MEDS ORDERED: METO-485 PO (21:18)
[2021-06-22] MEDS: INSULIN REGULAR, HUMAN 100 UNIT/ML VIAL SUBQ ONE (21:27)
[2021-06-22 21:40] LABS: BARBITURATE, URINE NEGATIVE ng/ml (NEG <=200); BENZODIAZEPINE, URINE NEGATIVE ng/mL (NEG <=200); CANNABINOID, URINE NEGATIVE ng/mL (NEG <=50); COCAINE, URINE NEGATIVE ng/mL (NEG <=300); OPIATE, URINE NEGATIVE ng/mL (NEG <=2000); PHENCYCLIDINE SCREEN,URINE NEGATIVE ng/mL (NEG <=25)
[2021-06-22 22:00] VITALS: BP 153/66
--- NOTE | 2021-06-22 22:00 | NUR ---
Patient discharged with v/s stable. Written and verbal after care instructions given and explained. Patient alert, oriented and verbalized understanding of instructions. Wheel Chair Assisted with to lobby with pt. stating that her mother will pick her up. All questions addressed prior to discharge. ID band removed. Patient advised to follow up with PMD. Rx of Reglan given. Patient educated on indication of medication including possible reaction and side effects. Opportunity to ask questions provided and answered.
== END 2021-06-22 22:00 | disposition home or self-care (01) ==
LOC: MED 18:23
DX: E11.65 Type 2 diabetes mellitus with hyperglycemia (principal); Z20.822 Contact with and (suspected) exposure to COVID-19; E11.43 Type 2 diabetes mellitus with diabetic autonomic (poly)neuropathy; K31.84 Gastroparesis; F15.90 Other stimulant use, unspecified, uncomplicated; Z79.899 Other long term (current) drug therapy; Z79.82 Long term (current) use of aspirin; Z88.6 Allergy status to analgesic agent; Z91.010 Allergy to peanuts
CPT/HCPCS: 36415; 71045; 80053; 80305; 81001; 83605; 83690; 85025; 87040; 87426; 96361; 96372; 96374; 99284; J1815; J2405; J7030; Q0092

== ENCOUNTER 2021-09-22 12:11 | Inpatient (IN) | payer OTHER, SELFPAY ==
[~2021-09-22] VITALS: Ht 162.6 cm; Wt 54.4 kg
[2021-09-22] VITALS (8 sets, daily range): BP systolic 91–176; BP diastolic 48–96
[~2021-09-22 12:11] MED LIST changes: +METO-485 PO
--- NOTE | 2021-09-22 12:13 | NUR ---
W/C ASSISTED TO BED 04
[2021-09-22] MEDS ORDERED: NACL 0.9% 1,000 ML IV ONE ×2 (12:25)
--- NOTE | 2021-09-22 12:30 | NUR ---
PT C/O WEAKNESS, ELEVATED BS SINCE LAST NIGHT PER PT. IN TRIAGE BS READ "HIGH". PT GCS 15 BUT VERY WEAK. REPORT METH USE YESTERDAY AM. IV INSERTED TO LEFT FA #18GUAGE, LEFT WRIST #18GUAGE, FLUIDS INFUSING PER ORDER. STACH ON MONITOR. BREATHING UNLABORED. WILL CONTINUE TO MONITOR.
[2021-09-22 12:50] LABS: BASOPHILS % (AUTO) 0.4 % (0.0-2.0); EOSINOPHILS # (AUTO) 0.1 K/uL (0-0.4); EOSINOPHILS % (AUTO) 0.7 % (0.0-4.0); HEMATOCRIT 46.5 % (36-48); HEMOGLOBIN 15.4 g/dL (12.0-16.0); LYMPHOCYTES # (AUTO) 2.2 K/uL (2.5-16.5); LYMPHOCYTES % (AUTO) 23.7 % (20.5-51.1); MEAN CORPUSCULAR HEMOGLOBIN 32 pg (27-31); MEAN CORPUSCULAR HGB CONC 33 g/dL (33-37); MEAN CORPUSCULAR VOLUME 96.2 fL (80-94); MONOCYTES # (AUTO) 0.3 K/uL (0.8-1.0); MONOCYTES % (AUTO) 3.7 % (1.7-9.3); NEUTROPHILS # (AUTO) 6.6 K/uL (1.8-7.7); NEUTROPHILS % (AUTO) 71.5 % (42.2-75.2); PLATELET COUNT (AUTO) 299 K/uL (140-450); RED BLOOD CELL COUNT(AUTO) 4.84 MIL/uL (4.20-5.40); RED CELL DISTRIBUTION WIDTH 13.4 % (11.6-13.7); WHITE BLOOD COUNT (AUTO) 9.2 K/uL (4.8-10.8)
[2021-09-22 13:12] LABS: ALBUMIN 3.4 g/dL (3.4-5.0); CREATININE 1.4 mg/dL (0.6-1.3); MAGNESIUM 2.1 mg/dL (1.8-2.4); PHOSPHORUS 3.4 mg/dL (2.5-4.9); TOTAL BILIRUBIN 0.4 mg/dL (0.0-1.0)
[2021-09-22] MEDS ORDERED: INSULIN REGULAR, HUMAN 100 UNIT in NACL 0.9% 100 ML IV ONE ×2 (13:25)
--- NOTE | 2021-09-22 13:32 | NUR ---
FLUIDS INFUSED, ORDERS TO PLACE ON INSULIN DRIP, SPOKE TO PHARMACY STATES WILL BRING OVER WHEN READY.
[2021-09-22 14:00] LABS: APPEARANCE,URINE CLEAR (CLEAR); BILIRUBIN,URINE NEGATIVE (NEGATIVE); BLOOD, URINE 1+ (NEGATIVE); COLOR,URINE YELLOW (YELLOW); LEUKOCYTE ESTERASE ,URINE NEGATIVE (NEGATIVE); NITRITE, URINE POSITIVE (NEGATIVE); PH,URINE 5.5 (5.0-9.0); UGLUCOSE 3+ (NEGATIVE)
[2021-09-22] MEDS ORDERED: HYDROcodone/APAP 5/325 MG 1 TAB TAB PO PRN (14:05)
[2021-09-22] MEDS ORDERED: DEXTROSE 50% 50 ML SYR IVP PRN ×2 (14:05)
[2021-09-22] MEDS ORDERED: ONDANSETRON 4 MG/2 ML VIAL ONE (14:05)
[2021-09-22] MEDS ORDERED: LORazepam 1 MG TAB PO PRN (14:05)
[2021-09-22] MEDS ORDERED: METOCLOPRAMIDE 10 MG TAB PO PRN (14:05)
[2021-09-22] MEDS ORDERED: ZOLPIDEM 5 MG TAB PO PRN (14:05)
[2021-09-22] MEDS ORDERED: ONDANSETRON 4 MG/2 ML VIAL IVP PRN (14:05)
[2021-09-22] MEDS ORDERED: ACETAMINOPHEN 325 MG TAB PO PRN (14:05)
--- NOTE | 2021-09-22 14:26 | NUR ---
Patient will be admitted to care of DR NAVA. Admited to ICU. Will go to room 3. Belongings list completed. Report to CHING.
[2021-09-22 14:28] LABS: RBC,URINE 0-5 /HPF (0-5); WBC,URINE NONE SEEN /HPF (0-5)
--- NOTE | 2021-09-22 14:48 | NUR ---
Pt transferred to ICU via BED WITH KAYLA JETT.
--- NOTE | 2021-09-22 15:00 | NUR ---
RECEIVED PT FROM ER NURSE FOR CONTINUITY OF CARE. PT IS ALERT AND ORIENTED X 4. PT CAN MOVE SELF WITH SOME ASSISTANCE. IV ACCESS ON LEFT HAND 18G WITH SALINE LOCK AND 18 G LEFT FOREARM RUNNING INSULIN DRIP AT 5 UNITS/HR. PT ON NAILHEAD PUNCHER IS SR. PT IS ON ROOM AIR WITH NO DIFFICULTIES OF BREATHING AND NO SIGN OF DISTRESS. SKIN IS WARM AND INTACT. ALL SAFETY PRECAUTIONS ARE IMPLEMENTED. WILL CONTINUE TO MONITOR.
[2021-09-22] MEDS: BLOOD GLUCOSE MONITORING 1 DEV DEV FS SCH ×10 (15:05→23:22)
[2021-09-22 16:28] LABS: ANION GAP 10.1 (8-16); CARBON DIOXIDE 31.8 mmol/L (21-32); CREATININE 1.2 mg/dL (0.6-1.3); POTASSIUM 3.9 mmol/L (3.5-5.1)
[2021-09-22] MEDS ORDERED: CLONIDINE HYDROCHLORIDE 0.1 MG TAB PO PRN (16:30)
--- NOTE | 2021-09-22 16:30 | NUR ---
ELIJAH SMALL NOTIFIED THAT PT, BP IS 185/91 AND HR AT 80/MIN.
--- NOTE | 2021-09-22 16:45 | NUR ---
ELIJAH SMALL CALL BACK ORDER CLONIDINE O.2MG Q 4 HR PRN WHEN SBP OVER 150.
[2021-09-22] MEDS: GABAPENTIN 300 MG CAP PO SCH (16:51)
--- NOTE | 2021-09-22 16:55 | NUR ---
CLONIDINE 0.2MG PO GIVEN.
--- NOTE | 2021-09-22 18:10 | NUR ---
INSULIN DRIP REDUCED TO 4 UNITS/HR PER MD ORDERS
--- NOTE | 2021-09-22 19:12 | NUR ---
INSULIN DRIP REDUCED TO 3 UNITS/HR PER MD ORDERS
--- NOTE | 2021-09-22 19:30 | NUR ---
Received report from MING Blank RN. Regular Insulin Drip infusing @3units /hr. , Accucheck q1h. Patient NPO at this time to control Bld. Sugar, Flood to [place].
--- NOTE | 2021-09-22 19:35 | NUR ---
ENDORSED CARE TO KNIFE CHANGER NURSE FOR CONTINUITY OF CARE.
[2021-09-22] MEDS: INSULIN REGULAR, HUMAN 100 UNIT in NACL 0.9% 100 ML IV SCH ×6 (20:34→22:39)
[2021-09-22 20:36] LABS: ANION GAP 12.6 (8-16); CARBON DIOXIDE 29.8 mmol/L (21-32); POTASSIUM 3.4 mmol/L (3.5-5.1)
[2021-09-22] MEDS: levETIRAcetam 500 MG TAB PO SCH (21:24)
[2021-09-23] VITALS (11 sets, daily range): BP systolic 96–134; BP diastolic 49–93
[2021-09-23] MEDS: BLOOD GLUCOSE MONITORING 1 DEV DEV FS SCH ×11 (00:36→20:50)
--- NOTE | 2021-09-23 01:25 | NUR ---
BS X4 was between 90-150 so Accucheck converted from q1h to q2h as per protocol.
[2021-09-23] MEDS: INSULIN REGULAR, HUMAN 100 UNIT in NACL 0.9% 100 ML IV SCH ×4 (03:20→05:12)
--- NOTE | 2021-09-23 05:10 | NUR ---
Blood Sugar between 90-150mg/dl X2 ( Please see Blood sugar monitoring list in EMR). changed Accucheck monitoring from Q2H to q4H per Protocol Also stopped Insulin drip since last BS= 82mg/dl @0509 per Protocol. Next Blood sugar Monitoring will be due @ 0909.
--- NOTE | 2021-09-23 07:15 | NUR ---
RECEIVED REPORT FROM GINETTE GARZA AND DEE GARZA FOR CONTINUITY OF CARE. PT A&OX4. PT IS CALM, COOPERATIVE, AND FATIGUE. EYES OPEN, PERRLA. ON ROOM AIR. LUNG SOUNDS CLEAR THROUGHOUT. HEART SOUNDS S1&2, REGULAR, RHYTHMIC, EVEN, SR ON MONITOR. LFA IV 18G PATENT INTACT, NO S/S OF REDNESS OR WARMTH. L HAND IV 18 G PATENT INTACT, NO S/S OF REDNESS OR WARMTH. BOWEL SOUNDS ACTIVE IN ALL 4 QUADRANTS. FULL ROM IN BUE AND BLE. F/C IN PLACE DRAINING TO GRAVITY. STANDARD PRECAUTIONS IN PLACE. SAFETY PRECAUTIONS IN PLACE. CALL LIGHT WITHIN REACH. Addendum: 09/23/21 at 0754 by Jen Nunez RN RECEIVED REPORT FROM VIET GARZA FOR CONTINUITY OF CARE. PT A&OX4. PT IS CALM, COOPERATIVE, AND FATIGUE. EYES OPEN, PERRLA. ON ROOM AIR. LUNG SOUNDS CLEAR THROUGHOUT. HEART SOUNDS S1&2, REGULAR, RHYTHMIC, EVEN, SR ON MONITOR. LFA IV 18G PATENT INTACT, NO S/S OF REDNESS OR WARMTH. L HAND IV 18 G PATENT INTACT, NO S/S OF REDNESS OR WARMTH. BOWEL SOUNDS ACTIVE IN ALL 4 QUADRANTS. FULL ROM IN BUE AND BLE. F/C IN PLACE DRAINING TO GRAVITY. STANDARD PRECAUTIONS IN PLACE. SAFETY PRECAUTIONS IN PLACE. CALL LIGHT WITHIN REACH.
--- NOTE | 2021-09-23 07:23 | NUR ---
Report given to Avel AM RN. All questions answered. Accucheck now Q4H & Insulin Drip are OFF since @8286.
--- NOTE | 2021-09-23 08:14 | NUR ---
PATIENT HAS BEEN SCREENED AND CATEGORIZED HIGH NUTRITION RISK. PATIENT WILL BE SEEN WITHIN 1-2 DAYS OF ADMISSION. 09/23/21-09/24/21 REFERRAL RECEIVED FOR UNCONTROLLED DIABETES [address]
--- NOTE | 2021-09-23 08:15 | NUR ---
BSG 97. PT EATING IN THE BED. PT TOLERATING WELL. WILL CONTINUE TO MONITOR.
[2021-09-23] MEDS: NACL 0.45% 1,000 ML IV SCH ×2 (08:31→22:36)
[2021-09-23 08:38] LABS: BASOPHILS % (AUTO) 0.2 % (0.0-2.0); EOSINOPHILS # (AUTO) 0.1 K/uL (0-0.4); EOSINOPHILS % (AUTO) 0.6 % (0.0-4.0); HEMOGLOBIN 14.2 g/dL (12.0-16.0); LYMPHOCYTES # (AUTO) 3.3 K/uL (2.5-16.5); LYMPHOCYTES % (AUTO) 27.2 % (20.5-51.1); MEAN CORPUSCULAR HEMOGLOBIN 32 pg (27-31); MEAN CORPUSCULAR HGB CONC 34 g/dL (33-37); MEAN CORPUSCULAR VOLUME 94.5 fL (80-94); MONOCYTES # (AUTO) 0.4 K/uL (0.8-1.0); MONOCYTES % (AUTO) 3.3 % (1.7-9.3); NEUTROPHILS # (AUTO) 8.3 K/uL (1.8-7.7); NEUTROPHILS % (AUTO) 68.7 % (42.2-75.2); PLATELET COUNT (AUTO) 246 K/uL (140-450); RED BLOOD CELL COUNT(AUTO) 4.45 MIL/uL (4.20-5.40); RED CELL DISTRIBUTION WIDTH 13.7 % (11.6-13.7); WHITE BLOOD COUNT (AUTO) 12.1 K/uL (4.8-10.8)
--- NOTE | 2021-09-23 08:45 | NUR ---
PT COMPLAINS OF SACRUM PAIN 07/02 DESCRIBED "PRESSURE". MEDICATED WITH NORCO PER DR ORDER. HUMPHREY. PT TOLERATED WELL.
[2021-09-23] MEDS ORDERED: POTASSIUM CHLORIDE 10 MEQ TABER PO PRN (08:50)
[2021-09-23] MEDS: GABAPENTIN 300 MG CAP PO SCH ×3 (08:53→16:14)
[2021-09-23] MEDS: SERTRALINE 50 MG TAB PO SCH (08:53)
[2021-09-23 08:55] LABS: CREATININE 0.9 mg/dL (0.6-1.3)
[2021-09-23] MEDS: DOCUSATE SODIUM 100 MG GELCAP PO SCH (08:55)
[2021-09-23] MEDS: levETIRAcetam 500 MG TAB PO SCH ×2 (08:56→21:32)
[2021-09-23] MEDS: ATORVASTATIN 20 MG TAB PO SCH (08:57)
[2021-09-23] MEDS: ASPIRIN 81 MG TAB.CHEW PO SCH (08:57)
--- NOTE | 2021-09-23 09:15 | NUR ---
PT AWAKE IN THE BED. NO SIGNS OF DISTRESS OR DISCOMFORT. STATES 0/10 PAIN, RELIEF WITH NORCO. PT TOLERATED WELL. WILL CONTINUE TO MONITOR.
--- NOTE | 2021-09-23 09:20 | NUR ---
DR POOLE AT BEDSIDE, EXAMINING PT.
[2021-09-23] MEDS ORDERED: INSULIN LANTUS 100 UNITS/ML 10 ML VIAL SUBQ SCH (09:45)
--- NOTE | 2021-09-23 11:30 | NUR ---
PT ASLEEP IN THE BED. NO SIGNS OF DISTRESS OR DISCOMFORT. BED IN LOWEST POSITION, CALL LIGHT WITHIN REACH. WILL CONTINUE TO MONITOR.
--- NOTE | 2021-09-23 13:30 | NUR ---
PT AWAKE, EYES OPEN. CALM AND COOPERATIVE, NO SIGNS OF DISTRESS. CALL LIGHT WITHIN REACH, WILL CONTINUE TO MONITOR.
--- NOTE | 2021-09-23 14:15 | NUR ---
09/23/21 RD INITIAL ASSESSMENT COMPLETED PLEASE REFER TO NUTRITION ASSESSMENT UNDER CARE ACTIVITY FOR ESTIMATED NUTRITIONAL NEEDS. 1. CONTINUE CCHO 60 GM MECHANICAL SOFT DIET TOLERATED 2. MONITOR BLOOD GLUCOSE LEVELS 3. RD TO FOLLOW-UP 3-5 DAYS, MODERATE RISK CHELI CHRISTIANSEN RD
--- NOTE | 2021-09-23 15:25 | NUR ---
PHYSICAL THERAPY AT BEDSIDE. PT TOLERATING WELL. WILL CONTINUE TO MONITOR. Addendum: 09/23/21 at 1547 by Jen Nunez RN PHYSICAL THERAPY AT BEDSIDE. WILL CONTINUE TO MONITOR.
[2021-09-23] MEDS ORDERED: Z-GUARD PASTE TP ONE (15:34)
[2021-09-23] MEDS ORDERED: Z-GUARD PASTE TP SCH (15:40)
--- NOTE | 2021-09-23 16:12 | NUR ---
DC PLANNING: PATIENT WAS ADMITTED FROM HOME WITH A DX OF DKA. PATIENT ROJAS A HX OF DM BLOOD GLUCOSE ON ADMISSION [phone] AND 160 ANION GAP 21 10.1 12 AND 11. ADMINISTERED INSULIN DRIP AND CONTINUED HOME MEDS. PATIENT HAS AN ORDER TO GO TO SNF FOR REHAB. FAXED TO [facility]. CM TO FOLLOW Addendum: 09/23/21 at 1833 by Kimberli Medina CM DC PLANNING PATIENT IS A 55 YEAR-OLD FEMALE ADMITTED IN THE [facility]/ED ON 09/22/2021 DUE TO POOR SUGAR LEVES AND USE OF SUBSTANCES. PELON MET WITH PATIENT AT BEDSIDE TO DISCUSS AND GATHER HER COLLATERAL INFORMATION. PATIENT REPORTED LIVING AT HOME WITH HER MOTHER AND BROTHER IN [facility]. PATIENT REPORTED THAT BOTH ARE HER EMERGENCY CONTACTS. PATIENT DISCLOSED DURING THE VISIT WITH THESE CAREER INFORMATION SPECIALIST THAT SHE DID NOT HAVE ADVANCE DIRECTIVES IN PLACE AND DID NOT WANTED THE INF. PACKET PROVIDED BY PELON. PATIENT STATED " MY MOM AND MY BROTHER WILL MAKE THE DESICIONS FOR ME" PER PATIENT SHE REPORTED NOT HAVING ANY ISSUES GETTING OR TAKING HER MEDICATIONS FROM THE [facility] NEAR HER HOME. PATIENT STATED HAVING A WALKER AND A CANE AT HOME HOWEVER NOT NEEDING THEM OR USING THEM VERY MUCH AT THIS TIME HER DME AT HOME. PATIENT REPORTED BEEN ACTIVE AND INDEPENDENT TO AMBULATE AT HOME AND WHEN NEEDS HELP SHE ASK FOR HELP TO HER MOTHER AND FAMILY. PATIENT REPORTED GOING TO HER PCP IN [place] MD EITAN VAN. HOWEVER IS THINKING TO CHANGE MD PROVIDER. PER PATIENT LAST VISIT WITH MD WAS ABOUT A MONTH AGO. PELON INFORMED PATIENT THAT A FOLLOW UP APPOINTMENT WITH HER PCP WILL BE SCHEDULED BY THESE CAREER INFORMATION SPECIALIST IF SHE IS DISCHARGE HOME PATIENT AGREED. PELON DISCUSSED WITH PATIENT POTENTIAL NEED FOR SNF AND PATIENT AGREED TO GO TO SNF IF MD RECOMMENDED. SW WILL FOLLOW UP NEEDED. Addendum: 09/24/21 at 1327 by Estefanía Strange RN DC PLANNING: PATIENT IS ACCEPTED AT [facility] GOING TO ROOM . ARRANGED TRANSPORT WITH [facility] [employer]ER TIME 2 PM NOTIFIED KAT GARZA CM TO FOLLOW
--- NOTE | 2021-09-23 16:20 | NUR ---
BSG 574. PAGED DR POOLE. NO ANSWER.
--- NOTE | 2021-09-23 16:45 | NUR ---
PAGED DR NAVA TO NOTIFY ABOUT BSG [address] NO ANSWER FROM DR POOLE.
--- NOTE | 2021-09-23 17:20 | NUR ---
STILL NO CALL BACK FROM DR POOLE OR DR NAVA. ADMINISTERED 10 UNITS OF HUMALOG - BSG 444 AT 1620. NADR, PT TOLERATED WELL. WILL CONTINUE TO MONITOR PT.
[2021-09-23] MEDS: INSULIN LISPRO SLIDING SCALE 100 UNITS/ML VIAL SUBQ PRN ×2 (17:29→21:25)
[2021-09-23] MEDS: INSULIN LANTUS 100 UNITS/ML 10 ML VIAL SUBQ SCH (18:31)
--- NOTE | 2021-09-23 19:15 | NUR ---
Report given by MING Sepulveda PHARMACY AIDE, questions answered.
--- NOTE | 2021-09-23 19:28 | NUR ---
BEDSIDE REPORT GIVEN TO VIET GARZA FOR CONTINUITY OF CARE.
--- NOTE | 2021-09-23 21:20 | NUR ---
Called Dr. Ochoa (Covering for Dr. Palencia) relayed BS= 424mg/dl, ordered to Give 16units Humalog SQ for BS >400, noted & carried out.
--- NOTE | 2021-09-23 22:17 | NUR ---
Report given to ISREAL, Tele PM RN, all Questions answered. Latest BS @2049 was 424mg/dl Given 16units Humalog Insulin SQ per Dr. Ochoa's order.A/O, have Voracious Appetite w/ her Carbohydrate Consistent Diet, ,On RA, sating 96-100%, IVF= 1/2 NS @70ml/hron LFA G18 & LH G18=SL, Flood to [place], Accucheck q AC & HS.
--- NOTE | 2021-09-23 23:24 | NUR ---
RECEIVED THE PT FROM ICU VIA BED. PATIENT A/A/OX3, NOT IN ANY DISTRESS AND NO COMPLAIN AT THIS TIME. IVF INFUSING ORDERED ON THE LEFT FOREARM GAUGE 18. VSS, AFEBRILE SATING 100% ON RA. ORIENTED THE PATIENT TO THE ROOM SETTING AND USE OF CALL LIGHT SYSTEM. FALL PRECAUTION IMPLEMENTED. INSTRUCTED THE PATIENT NOT TO GET OUT OF BED WITHOUT ASSISTANCE. PATIENT VERBALIZED UNDERSTANDING. CALL LIGHT WITHIN REACH. WILL CONTINUE POC.
--- NOTE | 2021-09-23 23:35 | NUR ---
Patient taken by KAYLA Lo Timber Selector to Tele Rm# [phone] via bed.
--- NOTE | 2021-09-24 02:00 | NUR ---
PATIENT ASLEEP AT THIS TIME. VISIBLE CHEST RISE AND FALL NOTED. NOT IN ANY DISTRESS AND NO COMPLAIN AT THIS TIME. CALL LIGHT WITHIN REACH. WILL CONTINUE POC.
[2021-09-24 04:00] VITALS: BP 114/72
--- NOTE | 2021-09-24 04:00 | NUR ---
VITAL SIGNS STABLE, AFEBRILE, SATING 100% ON RA. NOT IN ANY DISTRESS AND NO COMPLAIN AT THIS TIME. WILL CONTINUE POC.
--- NOTE | 2021-09-24 06:00 | NUR ---
NO ACUTE EVENTS THROUGHOUT THE NIGHT. PT NOT IN ANY DISTRESS AND NO COMPLAIN AT THIS TIME. ALL NEEDS ATTENDED. CALL LIGHT WITHIN REACH. WILL ENDORSE THE PATIENT TO THE ONCOMING RN FOR CONTINUITY OF CARE.
[2021-09-24] MEDS: BLOOD GLUCOSE MONITORING 1 DEV DEV FS SCH ×2 (06:15→12:06)
--- NOTE | 2021-09-24 07:46 | NUR ---
ENDORSED PT TO DAY SHIFT RN FOR CONTINUITY OF CARE. PT IS IN STABLE CONDITION.
--- NOTE | 2021-09-24 07:47 | NUR ---
RECEIVED BEDSIDE REPORT FROM CASEWORK MANAGER NURSE FOR CONTINUITY OF CARE. PATIENT IS AOX2, RESPIRATIONS EVEN AND UNLABORED. ON ROOM AIR AND NO RESPIRATORY DISTRESS NOTED. SKIN IS WARM, DRY, AND INTACT. IV SITE ON L FOREARM 18G INFUSING WELL. DENIES PAIN AT THE MOMENT.SAFETY PRECAUTIONS IN PLACE. CALL LIGHT WITHIN REACH
[2021-09-24] MEDS: GABAPENTIN 300 MG CAP PO SCH ×2 (09:20→12:02)
[2021-09-24] MEDS: ASPIRIN 81 MG TAB.CHEW PO SCH (09:21)
[2021-09-24] MEDS: SERTRALINE 50 MG TAB PO SCH (09:21)
[2021-09-24] MEDS: ATORVASTATIN 20 MG TAB PO SCH (09:21)
[2021-09-24] MEDS: levETIRAcetam 500 MG TAB PO SCH (09:21)
[2021-09-24] MEDS: DOCUSATE SODIUM 100 MG GELCAP PO SCH (09:21)
[2021-09-24] MEDS: INSULIN LANTUS 100 UNITS/ML 10 ML VIAL SUBQ SCH (09:27)
--- NOTE | 2021-09-24 10:21 | NUR ---
PATIENT IN BED NO COMPLAINS, GOT MORNING MEDICATION TOLERATED WELL, ALL SAFETY MEASURES ON PLACE, CALLS LIGHT WITHUING REACH
[2021-09-24] MEDS: INSULIN LISPRO SLIDING SCALE 100 UNITS/ML VIAL SUBQ PRN (12:06)
[2021-09-24] MEDS: NACL 0.45% 1,000 ML IV SCH (12:09)
--- NOTE | 2021-09-24 12:10 | NUR ---
PATIENT IN BED NO COMPLAINS, NO SOD NOTED L, ALL SAFETY MEASURES ON PLACE, CALLS LIGHT WITHUING REACH
--- NOTE | 2021-09-24 14:10 | NUR ---
PATIENT IN BED NO COMPLAINS, NO SOD NOTED, DR MANCINI ASKED TO REMOVE MONTGOMERY CATHETER, PATIENT IS GETTING DISCHARGE, REPORT GIVEN TO LAURIE MENARD RN, ALL SAFETY MEASURES ON PLACE, CALLS LIGHT WISHING REACH
--- NOTE | 2021-09-24 15:54 | NUR ---
PATIENT GETTING DISCHARGED , BARK FITTER HERE , GOT PICKED UP, MONTGOMERY CATHETER REMOVED, IV REMOVED BLEEDING CONTROLLED, ID BAND FREMOVED SKIN INTACT, GOT DISCHARGE PACKET AND EDUCATION.
== END 2021-09-24 16:29 | disposition home or self-care (01) | DRG 420 ==
LOC: MED 12:11 → EDBEDREQSVC 13:29 → MTU 14:15 → MIC 14:29 → MTU 09-23 23:01
PROVIDERS: ADMIT Hospitalist; ATTEND Hospitalist
DX: E11.10 Type 2 diabetes mellitus with ketoacidosis without coma (principal); N17.9 Acute kidney failure, unspecified; E87.8 Other disorders of electrolyte and fluid balance, not elsewhere classified; I13.0 Hypertensive heart and chronic kidney disease with heart failure and stage 1 through stage 4 chronic kidney disease, or unspecified chronic kidney disease; I50.32 Chronic diastolic (congestive) heart failure; E87.1 Hypo-osmolality and hyponatremia; F32.A Depression, unspecified; N18.2 Chronic kidney disease, stage 2 (mild); E11.21 Type 2 diabetes mellitus with diabetic nephropathy; E11.22 Type 2 diabetes mellitus with diabetic chronic kidney disease; F15.10 Other stimulant abuse, uncomplicated; Z88.6 Allergy status to analgesic agent; Z91.010 Allergy to peanuts; Z79.899 Other long term (current) drug therapy; Z79.82 Long term (current) use of aspirin; Z79.4 Long term (current) use of insulin
CPT/HCPCS: 36415; 80048; 80053; 81001; 81025; 82009; 82803; 82948; 83735; 84100; 85025; 96361; 96365; 97110; 97112; 97163-GP; 97530; 99291; J1815; J2405